=== PATIENT | male | born 1935 | race Caucasian/White ===

== ENCOUNTER 2017-03-14 13:41 | Inpatient (IN) | payer MEDICARE ==
[~2017-03-14] VITALS: Ht 175.3 cm; Wt 95.9 kg
[~2017-03-14 13:41] MED LIST: ACET325S8 PR; ATOR80TA PO; CARB25TA PO; COUM5TAB PO; HYDR-2768 PO; METO100T PO; OMEP20CA5 PO; PRIN5TAB PO; WARF2.5 PO
[2017-03-14 13:42] VITALS: BP 116/58; PULSE 94; RESP 16; TEMP 98.6; O2SAT 95
[2017-03-14 14:00] VITALS: BP 116/61; PULSE 81; RESP 20; O2SAT 97
[2017-03-14] MEDS ORDERED: METO100T PO (14:06)
[2017-03-14] MEDS ORDERED: COLA100C5 PO (14:06)
[2017-03-14] MEDS ORDERED: ENTA1TAB PO (14:06)
[2017-03-14] MEDS ORDERED: CARB25TA9 PO (14:06)
[2017-03-14] MEDS ORDERED: ATOR80TA45 PO (14:06)
[2017-03-14] MEDS ORDERED: WARF-23 PO (14:06)
[2017-03-14] MEDS ORDERED: HYDR25TA5 PO (14:06)
[2017-03-14] MEDS ORDERED: OMEP20TA93 PO (14:06)
[2017-03-14] MEDS ORDERED: LISI-519 PO (14:06)
[2017-03-14] MEDS ORDERED: VANCOMYCIN INJ 1,000 MG in SODIUM CHLOR 0.9% 250 ML INJ 250 ML IV ONE (14:45)
[2017-03-14] MEDS ORDERED: DILTIAZEM HCL 25 MG/5 ML VIAL IV PUSH ONE (14:45)
[2017-03-14] MEDS ORDERED: SODIUM CHLORIDE 0.9% FLUSH 5 ML FLUSH IV FLUSH PRN (14:45)
[2017-03-14] MEDS ORDERED: TETANUS/DIPHTHERIA TOXOID ADULT 0.5 ML VIAL IM ONE (14:45)
[2017-03-14] MEDS ORDERED: SODIUM CHLOR 0.9% 1000 ML INJ 1,000 ML IV SCH (14:45)
[2017-03-14] MEDS ORDERED: DILTIAZEM INJ 125 MG in SODIUM CHLORIDE 0.9% INJ 100 ML IV PRN (14:45)
--- NOTE | 2017-03-14 14:45 | PD ---
HPI Chief Complaint: Pain: Acute or Chronic Time Seen by Provider: 14:06 Travel History International Travel<30 days: No Contact w/Intl Traveler<30days: No Traveled to known affect area: No History of Present Illness HPI 81-year-old male complains of left foot pain and swelling and redness. Patient states that he tripped and hyperflexed the right big toe a few days ago. Patient states that he was bleeding at that time at the base of the big toe at that time. Patient states the bleeding stopped. Patient states that he has increasing redness swelling tenderness left foot since then. Patient denies any fever chills. Patient denies any other injury. Patient is not sure of TD booster status. Patient has history of atrial fibrillation. Patient is on metoprolol and Coumadin. 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 [facility] Past Medical History Blood Disorders: No Cancer: Yes (SKIN) Cardiovascular Problems: Yes (STENTS, AFIB) Diabetes: No Endocrine: No Gastrointestinal Disorders: Yes Glaucoma: No Genitourinary: No Hepatitis: No Hiatal Hernia: Yes (GERD) Hypertension: Yes Immune Disorder: No Musculoskeletal: No Neurologic: Yes (PARKINSON'S) Psychiatric: No Respiratory: Yes (ASTHMA YOUTH) Thyroid Disease: No Past Surgical History Eye Surgery: Yes (CATARACT LT EYE) Joint Replacement: No Pacemaker: No Other Surgery: Yes (cyst removed from tailbone, hernia repairs) Social History Alcohol Use: Yes (DAILY) Tobacco Use: Yes (QUIT LONG AGO) Substance Use: No Allergies-Medications (Allergen,Severity, Reaction): Coded Allergies: No Known Allergies (Verified , 03/14/17) Reported Meds & Prescriptions Reported Meds & Active Scripts Active Reported Colace (Docusate Sodium) 100 Mg Capsule PO BID Entacapone 200 Mg Tab 200 Mg PO QID administered concomitantly with each levodopa/carbidopa dose Carbidopa-Levodopa 25-100 Mg Tab 1 Tab PO Q8HR Warfarin 5 Mg Tab 5 Mg PO DAILY Lisinopril 5 Mg Tab 5 Mg PO DAILY Omeprazole 20 Mg Tab 20 Mg PO DAILY Atorvastatin (Atorvastatin Calcium) 80 Mg Tab 80 Mg PO HS Hydrochlorothiazide 25 Mg Tab 25 Mg PO EVERY OTHER DAY Metoprolol Tartrate 100 Mg Tab 100 Mg PO BID Review of Systems General / Constitutional: No: Fever Eyes: No: Visual changes HENT: No: Headaches Cardiovascular: No: Chest Pain or Discomfort Respiratory: No: Shortness of Breath Gastrointestinal: No: Abdominal Pain Genitourinary: No: Dysuria Musculoskeletal: Positive: Edema, Pain Skin: No Rash Neurologic: No: Weakness Psychiatric: No: Depression Endocrine: No: Polydipsia Hematologic/Lymphatic: No: Easy Bruising Physical Exam Narrative GENERAL: Well-nourished, well-developed patient. SKIN: Focused skin assessment warm/dry. HEAD: Normocephalic. EYES: No scleral icterus. No injection or drainage. NECK: Supple, trachea midline. No JVD or lymphadenopathy. CARDIOVASCULAR: Irregularly irregular rate and rhythm without murmurs, gallops, or rubs. RESPIRATORY: Breath sounds equal bilaterally. No accessory muscle use. GASTROINTESTINAL: Abdomen soft, non-tender, nondistended. MUSCULOSKELETAL: Patient has redness swelling tenderness left foot area extending from the toes to the distal left lower leg. No induration noted. Increasing redness and heat noted. BACK: Nontender without obvious deformity. No CVA tenderness. Neurologic exam normal. Data Data Last Documented VS Vital Signs Date Time Temp Pulse Resp B/P (MAP) Pulse Ox O2 Delivery O2 Flow Rate FiO2 03/14/17 14:00 81 20 116/61 (79) 97 Room Air 03/14/17 13:42 98.6 Orders Orders Ecg Monitoring (03/14/17 14:31) Blood Pressure (03/14/17 14:31) Iv Access Insert/Monitor (03/14/17 14:31) Oximetry (03/14/17 14:31) Vital Signs (03/14/17 14:31) Diltiazem Inj (Cardizem Inj) (03/14/17 14:45) Diltiazem Inj (Cardizem Inj) (03/14/17 14:45) Sodium Chloride 0.9% Flush (Ns Flush) (03/14/17 14:45) Sodium Chlor 0.9% 1000 Ml Inj (Ns 1000 M (03/14/17 14:45) Electrocardiogram (03/14/17 14:35) Complete Blood Count With Diff (03/14/17 14:35) Comprehensive Metabolic Panel (03/14/17 14:35) Prothrombin Time / Inr (Pt) (03/14/17 14:35) Act Partial Throm Time (Ptt) (03/14/17 14:35) Blood Culture (03/14/17 14:35) Urinalysis - C+S If Indicated (03/14/17 14:35) Thyroid Stimulating Hormone (03/14/17 14:35) Chest, Single Ap (03/14/17 14:35) Foot, Complete ([id number]) (03/14/17 14:38) Tetanus/Diphtheria Tox Adult (Tetanus/Di (03/14/17 14:45) Vancomycin Inj (Vancomycin Inj) (03/14/17 14:45) Admit Order (Ed Use Only) (03/14/17 16:35) Labs Laboratory Tests Test 03/14/17 14:40 White Blood Count 14.0 TH/MM3 Red Blood Count 3.73 MIL/MM3 Hemoglobin 12.9 GM/DL Hematocrit 38.1 % Mean Corpuscular Volume 102.2 FL Mean Corpuscular Hemoglobin 34.6 PG Mean Corpuscular Hemoglobin Concent 33.8 % Red Cell Distribution Width 13.8 % Platelet Count 216 TH/MM3 Mean Platelet Volume 9.3 FL Neutrophils (%) (Auto) 82.9 % Lymphocytes (%) (Auto) 4.2 % Monocytes (%) (Auto) 12.1 % Eosinophils (%) (Auto) 0.5 % Basophils (%) (Auto) 0.3 % Neutrophils # (Auto) 11.6 TH/MM3 Lymphocytes # (Auto) 0.6 TH/MM3 Monocytes # (Auto) 1.7 TH/MM3 Eosinophils # (Auto) 0.1 TH/MM3 Basophils # (Auto) 0.0 TH/MM3 CBC Comment DIFF FINAL Differential Comment Prothrombin Time 34.1 SEC Prothromb Time International Ratio 2.9 RATIO Activated Partial Thromboplast Time 43.7 SEC Blood Urea Nitrogen 16 MG/DL Creatinine 0.84 MG/DL Random Glucose 121 MG/DL Total Protein 6.8 GM/DL Albumin 2.9 GM/DL Calcium Level 8.2 MG/DL Alkaline Phosphatase 168 U/L Aspartate Amino Transf (AST/SGOT) 21 U/L Alanine Aminotransferase (ALT/SGPT) 9 U/L Total Bilirubin 1.1 MG/DL Sodium Level 127 MEQ/L Potassium Level 3.7 MEQ/L Chloride Level 94 MEQ/L Carbon Dioxide Level 26.1 MEQ/L Anion Gap 7 MEQ/L Estimat Glomerular Filtration Rate 88 ML/MIN Thyroid Stimulating Hormone 3rd Gen 1.140 uIU/ML MDM Medical Decision Making Medical Screen Exam Complete: Yes Emergency Medical Condition: Yes Interpretation(s) Last Impressions Foot X-Ray 03/14/17 1438 Signed Impressions: Service Date/Time: Tuesday, March 14, 2017 14:53 - CONCLUSION: Diffuse soft tissue swelling. Simone Junior MD Chest X-Ray 03/14/17 1435 Signed Impressions: Service Date/Time: Tuesday, March 14, 2017 14:48 - CONCLUSION: Mild right lower lung infiltrate. Simone Junior MD 1626 PM. CBC WBC 14.0. Hemoglobin 12.9 hematocrit 30.1. MCV 102.2. 82 neutrophil. Sodium 127. Alkaline phosphatase 168. INR 2.9. Differential Diagnosis Differential diagnosis including fracture, cellulitis, abscess, osteomyelitis, atrial fibrillation with RVR. Narrative Course 81-year-old male with redness swelling redness of the left foot left ankle and distal left low leg. Status post injury a few days ago. TD booster given. Vancomycin 1 g IV. Patient has history of atrial fibrillation and in RVR. Cardizem 10 mg IV. Cardizem drip started. Saline solution 100 cc an hour. Atrial fibrillation with RVR slowdown to the rate about 80s and 90s. Cardizem was not given. Diagnosis Primary Impression: Cellulitis of left foot Additional Impression: Atrial fibrillation Qualified Codes: I48.2 - Chronic atrial fibrillation Admitting Information Admitting Physician Requests: Admit Madhu Chandler MD Mar 14, 2017 14:45
[2017-03-14 14:56] LABS: AUTOMATED NEUTROPHIL # 11.6 TH/MM3 (1.8-7.7); BASOPHIL % 0.3 % (0.0-2.0); EOSINOPHIL # 0.1 TH/MM3 (0-0.4); EOSINOPHIL % 0.5 % (0.0-4.0); HEMATOCRIT 38.1 % (39.0-51.0); HEMOGLOBIN 12.9 GM/DL (13.0-17.0); LYMPH % 4.2 % (9.0-44.0); LYMPHOCYTE # 0.6 TH/MM3 (1.0-4.8); MEAN CELL VOLUME 102.2 FL (80.0-100.0); MEAN CORPUSCULAR HEMOGLOBIN 34.6 PG (27.0-34.0); MEAN CORPUSCULAR HGB CONC 33.8 % (32.0-36.0); MEAN PLATELET VOLUME 9.3 FL (7.0-11.0); MONO % 12.1 % (0.0-8.0); MONOCYTE # 1.7 TH/MM3 (0-0.9); NEUT % 82.9 % (16.0-70.0); PLATELET COUNT 216 TH/MM3 (150-450); RED BLOOD COUNT 3.73 MIL/MM3 (4.50-5.90); RED CELL DISTRIBUTION WIDTH 13.8 % (11.6-17.2)
--- NOTE | 2017-03-14 15:00 | RADRPT ---
EXAM DATE/TIME: 03/14/2017 14:48 [facility] COMPARISON: No previous studies available for comparison. INDICATIONS : Shortness of breath. MEDICAL HISTORY : A-fib. Parkinsons. SURGICAL HISTORY : Inguinal hernia repair. ENCOUNTER: Initial ACUITY: 1 week PAIN SCORE: 7/10 LOCATION: Bilateral chest FINDINGS: A single view of the chest demonstrates a mild patchy infiltrate in the right lung base. The left ashley g is clear. There are no pleural effusions.. The cardiomediastinal contours are unremarkable. [place] us structures are intact. CONCLUSION: Mild right lower lung infiltrate. Simone Junior MD on March 14, 2017 at 14:57 Board Certified Radiologist. This report was verified electronically.
--- NOTE | 2017-03-14 15:00 | RADRPT ---
EXAM DATE/TIME: 03/14/2017 14:48 [facility] COMPARISON: No previous studies available for comparison. INDICATIONS : Shortness of breath. MEDICAL HISTORY : A-fib. Parkinsons. SURGICAL HISTORY : Inguinal hernia repair. ENCOUNTER: Initial ACUITY: 1 week PAIN SCORE: 7/10 LOCATION: Bilateral chest FINDINGS: A single view of the chest demonstrates a mild patchy infiltrate in the right lung base. The left ashley g is clear. There are no pleural effusions.. The cardiomediastinal contours are unremarkable. [place] us structures are intact. CONCLUSION: Mild right lower lung infiltrate. Simone Junior MD on March 14, 2017 at 14:57 Board Certified Radiologist. This report was verified electronically.
--- NOTE | 2017-03-14 15:01 | RADRPT ---
EXAM DATE/TIME: 03/14/2017 14:53 [facility] COMPARISON: No previous studies available for comparison. INDICATIONS : Left foot pain and swelling. MEDICAL HISTORY : A-fib. Parkinsons. SURGICAL HISTORY : Inguinal hernia repair. ENCOUNTER: Initial ACUITY: 1 week PAIN SCORE: 8/10 LOCATION: Left foot FINDINGS: Three view examination of the left foot demonstrates diffuse soft tissue swelling around the foot. Th e bony structures are grossly intact. No acute fracture joint dislocation. There is some mild primary degenerative changes involving the foot. No foreign bodies are demonstrated. There is a heel spur.. CONCLUSION: Diffuse soft tissue swelling. Simone Junior MD on March 14, 2017 at 14:58 Board Certified Radiologist. This report was verified electronically.
[2017-03-14 15:08] LABS: INTERNATIONAL NORMALIZED RATIO 2.9 RATIO; PROTHROMBIN TIME - PATIENT 34.1 SEC (9.8-11.6)
[2017-03-14 15:17] LABS: ALBUMIN 2.9 GM/DL (3.4-5.0); AST (GOT) 21 U/L (15-37); BICARBONATE 26.1 MEQ/L (21.0-32.0); BLOOD UREA NITROGEN 16 MG/DL (7-18); CALCIUM 8.2 MG/DL (8.5-10.1); CHLORIDE 94 MEQ/L (98-107); CREATININE 0.84 MG/DL (0.60-1.30); GLOMERULAR FILTRATION RATE 88 ML/MIN (>89); GLUCOSE,RANDOM 121 MG/DL (74-106); SODIUM (NA) 127 MEQ/L (136-145)
[2017-03-14 15:18] LABS: ALT (GPT) 9 U/L (12-78)
[2017-03-14 15:28] LABS: ALKALINE PHOSPHATASE 168 U/L (45-117); TOTAL BILIRUBIN ADULT 1.1 MG/DL (0.2-1.0); TOTAL PROTEIN 6.8 GM/DL (6.4-8.2)
--- NOTE | 2017-03-14 16:43 | HHI.HP ---
HPI Service [facility] Hospitalists Primary Care Physician Hamlet Ríos MD Admission Diagnosis left foot cellulitis. Atrial fibrillation. Chief Complaint: Left foot swelling and erythema Travel History International Travel<30 Days: No Contact w/Intl Traveler <30 Da: No Traveled to Known Affected Are: No History of Present Illness Mr. Elizabeth is a pleasant 81 y/o WM with HTN, hyperlipidemia, Atrial fibrillation, Parkinson's Disease and daily alcohol use. Pt presented to the ED at [facility] [place] on 03/14/17 with complaints of left foot swelling and erythema. Pt reports that he injured his foot about 1 week ago when he tripped and hyperflexed the right big toe. He states that he was bleeding for a short time at the base of the big toe after the initial injury. Patient states that he has increasing redness, swelling, and tenderness of the left foot over the last 2 days and the redness has increased up the left raygoza today. He denies any fevers or chills. He is noted to have significant edema of bilateral LE and reports increased LE edema over the last 6 months. Denies any palpitations, dizziness, chest pain, SOB. He had an Xray of the foot which noted diffuse soft tissue swelling in the left foot. His labs at admission noted an elevated WBC count of 14.0. He was given Vancomycin IV in the ED. Pts HR was elevated in the ED and had been planned to be given IV Cardizem but he converted back to rate controlled A. fib. Pt denies any known hx of CHF. His last Echo that was in the outpt records was in 2002 and noted EF 45%. Review of Systems Constitutional: DENIES: Diaphoretic episodes, Fever, Chills, Dizziness, Change in appetite Eyes: DENIES: Vision loss Ears, nose, mouth, throat: DENIES: Hearing loss Respiratory: DENIES: Cough, Shortness of breath Cardiovascular: COMPLAINS OF: Lower Extremity Edema, DENIES: Chest pain, Palpitations, Dyspnea on Exertion, Orthopnea Gastrointestinal: DENIES: Abdominal pain, Constipation, Diarrhea, Nausea, Vomiting Genitourinary: DENIES: Hematuria, Dysuria Musculoskeletal: DENIES: Back pain, Neck pain Integumentary: COMPLAINS OF: Abnormal pigmentation, DENIES: Rash Neurologic: COMPLAINS OF: Tremor (chronic), DENIES: Headache, Localized weakness Psychiatric: DENIES: Confusion Past Family Social History Past Medical History A. fib HTN Hyperlipidemia Parkinson Disease CAD with hx of stent x 2 Skin cancer Alcohol abuse Past Surgical History Inguinal hernia repair x 2 Pilonidal cyst removal PTCA with stent placement to RCA and Left Circumflex in 2000 Reported Medications Colace (Docusate Sodium) 100 Mg Capsule PO BID Entacapone 200 Mg Tab 200 Mg PO QID administered concomitantly with each levodopa/carbidopa dose Carbidopa-Levodopa 25-100 Mg Tab 1 Tab PO Q8HR Warfarin 5 Mg Tab 5 Mg PO DAILY Lisinopril 5 Mg Tab 5 Mg PO DAILY Omeprazole 20 Mg Tab 20 Mg PO DAILY Atorvastatin (Atorvastatin Calcium) 80 Mg Tab 80 Mg PO HS Hydrochlorothiazide 25 Mg Tab 25 Mg PO EVERY OTHER DAY Metoprolol Tartrate 100 Mg Tab 100 Mg PO BID Allergies: Coded Allergies: No Known Allergies (Verified , 03/14/17) Family History Father with hx of leukemia Mother from CHF 3 brother from CAD/IA Social History (+)Alcohol use, 3-4 glasses of wine per day, used to drink more heavily than that. Has been drinking for many years Denies any tobacco use Denies any illicit drug use Pt is and lives locally Physical Exam Vital Signs Vital Signs Date Time Temp Pulse Resp B/P (MAP) Pulse Ox O2 Delivery O2 Flow Rate FiO2 03/14/17 14:00 81 20 116/61 (79) 97 Room Air 03/14/17 13:42 98.6 94 16 116/58 (77) 95 Physical Exam GENERAL: This is a well-nourished, well-developed patient, in no apparent distress. SKIN: Left foot erythema from the toes to the mid raygoza. HEENT: Atraumatic. Normocephalic. No temporal or scalp tenderness. No scleral icterus. Airway patent. NECK: Trachea midline, supple, nontender. CARDIO: Irregular. RESP: CTA bilaterally. No wheezes, rales, or rhonchi. ABD: +BS, soft, non-tender, nondistended. EXT: Bilateral LE pitting edema. NEURO: Awake and alert. Motor and sensory grossly within normal limits. Normal speech. Laboratory Laboratory Tests Test 03/14/17 14:40 White Blood Count 14.0 Red Blood Count 3.73 Hemoglobin 12.9 Hematocrit 38.1 Mean Corpuscular Volume 102.2 Mean Corpuscular Hemoglobin 34.6 Mean Corpuscular Hemoglobin Concent 33.8 Red Cell Distribution Width 13.8 Platelet Count 216 Mean Platelet Volume 9.3 Neutrophils (%) (Auto) 82.9 Lymphocytes (%) (Auto) 4.2 Monocytes (%) (Auto) 12.1 Eosinophils (%) (Auto) 0.5 Basophils (%) (Auto) 0.3 Neutrophils # (Auto) 11.6 Lymphocytes # (Auto) 0.6 Monocytes # (Auto) 1.7 Eosinophils # (Auto) 0.1 Basophils # (Auto) 0.0 CBC Comment DIFF FINAL Differential Comment Prothrombin Time 34.1 Prothromb Time International Ratio 2.9 Activated Partial Thromboplast Time 43.7 Blood Urea Nitrogen 16 Creatinine 0.84 Random Glucose 121 Total Protein 6.8 Albumin 2.9 Calcium Level 8.2 Alkaline Phosphatase 168 Aspartate Amino Transf (AST/SGOT) 21 Alanine Aminotransferase (ALT/SGPT) 9 Total Bilirubin 1.1 Sodium Level 127 Potassium Level 3.7 Chloride Level 94 Carbon Dioxide Level 26.1 Anion Gap 7 Estimat Glomerular Filtration Rate 88 Thyroid Stimulating Hormone 3rd Gen 1.140 Date/Time Source Procedure Growth Status 03/14/17 14:40 Blood Peripheral Aerobic Blood Culture Pending Received 03/14/17 14:40 Blood Peripheral Anaerobic Blood Culture Pending Received Result Diagram: 03/14/17 1440 03/14/17 1440 Imaging Last Impressions Foot X-Ray 03/14/17 1438 Signed Impressions: Service Date/Time: Tuesday, March 14, 2017 14:53 - CONCLUSION: Diffuse soft tissue swelling. Simone Junior MD Chest X-Ray 03/14/17 1435 Signed Impressions: Service Date/Time: Tuesday, March 14, 2017 14:48 - CONCLUSION: Mild right lower lung infiltrate. Simone Junior MD Septic Shock Reassessment Heart: Irregular Lungs: Clear Skin: Other Caprini VTE Risk Assessment Caprini VTE Risk Assessment: Mod/High Risk (score >= 2) Caprini Risk Assessment Model Point Value = 1 Point Value = 2 Point Value = 3 Point Value = 5 Age 41-60 Minor surgery BMI > 25 kg/m2 Swollen legs Varicose veins or History of unexplained or recurrent spontaneous Oral contraceptives or hormone replacement Sepsis (< 1 month) Serious lung disease, including pneumonia (< 1 month) Abnormal pulmonary function Acute myocardial infarction Congestive heart failure (< 1 month) History of inflammatory bowel disease Medical patient at bed rest Age 61-74 Arthroscopic surgery Major open surgery (> 45 min) Laparoscopic surgery (> 45 min) Malignancy Confined to bed (> 72 hours) Immobilizing plaster cast Central venous access Age >= 75 History of VTE Family history of VTE Factor V Leiden Prothrombin [id number] Lupus anticoagulant Anticardiolipin antibodies Elevated serum homocysteine Heparin-induced thrombocytopenia Other congenital or acquired thrombophilia Stroke (< 1 month) Elective arthroplasty Hip, pelvis, or leg fracture Acute spinal cord injury (< 1 month) Prophylaxis Regimen Total Risk Factor Score Risk Level Prophylaxis Regimen 0-1 Low Early ambulation 2 Moderate Order ONE of the following: *Sequential Compression Device (SCD) *Heparin 5000 units SQ BID 3-4 Higher Order ONE of the following medications: *Heparin 5000 units SQ TID *Enoxaparin/Lovenox 40 mg SQ daily (WT < 150 kg, CrCl > 30 mL/min) *Enoxaparin/Lovenox 30 mg SQ daily (WT < 150 kg, CrCl > 10-29 mL/min) *Enoxaparin/Lovenox 30 mg SQ BID (WT < 150 kg, CrCl > 30 mL/min) AND/OR *Sequential Compression Device (SCD) 5 or more Highest Order ONE of the following medications: *Heparin 5000 units SQ TID (Preferred with Epidurals) *Enoxaparin/Lovenox 40 mg SQ daily (WT < 150 kg, CrCl > 30 mL/min) *Enoxaparin/Lovenox 30 mg SQ daily (WT < 150 kg, CrCl > 10-29 mL/min) *Enoxaparin/Lovenox 30 mg SQ BID (WT < 150 kg, CrCl > 30 mL/min) AND *Sequential Compression Device (SCD) Assessment and Plan Problem List: (1) Cellulitis of left foot ICD Codes: L03.116 - Cellulitis of left lower limb Status: Acute Plan: - Pt is a 81 y/o male with atrial fibrillation on chronic anticoagulation with Coumadin, HTN, Hyperlipidemia, Parkinson's Disease who presents to the ED with complaints of left foot swelling, pain and erythema over the last few days. He had injured his foot around 1 week ago. - Xray in the ED with noted diffuse soft tissue swelling - Blood cultures drawn in the ED and are pending - Pt received IV Vancomycin in the ED and we will continue this and monitor his progress - Pt with noted significant LE edema which he reports has worsened over the last 6 months - Give Lasix 20mg IV x one dose and recheck labs in the morning - Check 2D echo, last echo in the records was from 2002 with EF 45% - Supportive care - DVT prophylaxis, pt is on Coumadin with therapeutic INR. (2) Leg edema ICD Codes: R60.0 - Localized edema Plan: - See above. (3) HTN (hypertension) ICD Codes: I10 - Essential (primary) hypertension Status: Chronic Plan: - Hold on continuing Lisinopril with giving IV Lasix - Cont. Metoprolol - Monitor (4) Atrial fibrillation ICD Codes: I48.91 - Unspecified atrial fibrillation Status: Chronic Plan: - Cont. BB and Coumadin - Recheck INR in AM - Telemetry (5) CAD (coronary artery disease) ICD Codes: I25.10 - Atherosclerotic heart disease of [place] coronary artery without angina pectoris (6) Parkinson disease ICD Codes: G20 - Parkinson's disease Status: Chronic Plan: - Home meds continued (7) Alcohol use ICD Codes: Z78.9 - Other specified health status Status: Chronic Plan: - Pt drinks alcohol daily but denies any hx of withdrawal but has tremors related to his Parkinson's - Ativan PRN - Alcohol withdrawal precautions Physician Certification 2 Midnight Certification Type: Admission for Inpatient Services Order for Inpatient Services The services are ordered in accordance with Medicare regulations or non- Medicare payer requirements, as applicable. In the case of services not specified as inpatient-only, they are appropriately provided as inpatient services in accordance with the 2-midnight benchmark. Estimated LOS (days): 3 3 days is the estimated time the patient will need to remain in the hospital, assuming treatment plan goals are met and no additional complications. Post-Hospital Plan: Not yet determined Problem Qualifiers (1) Atrial fibrillation: Qualified Codes: I48.2 - Chronic atrial fibrillation Livier Malloy Mar 14, 2017 16:43
[2017-03-14] MEDS ORDERED: COUM2.5T PO (16:48)
[2017-03-14] MEDS ORDERED: LORazepam 0.5 MG TAB PO PRN (17:30)
[2017-03-14 17:51] LABS: BILIRUBIN, URINE NEG (NEG); BLOOD, URINE NEG (NEG); GLUCOSE,URINE NEG (NEG); HYALINE CAST, URINE 6 /lpf (RARE); KETONE, URINE 10 mg/dL (NEG); MUCUS URINE FEW /lpf (OCC); NITRITE,URINE NEG (NEG); URINE LEUKOCYTE ESTERASE NEG (NEG)
[2017-03-14 17:56] LABS: URINE COLOR DARK-ORANGE (YELLW/STRAW)
[2017-03-14] MEDS ORDERED: FUROSEMIDE 20 MG/2 ML VIAL IV PUSH ONE (18:00)
[2017-03-14 18:26] VITALS: BP 115/58; PULSE 96; RESP 16; TEMP 98.6; O2SAT 96
[2017-03-14] MEDS: CARBIDOPA/LEVODOPA 25 MG/100 MG TAB PO SCH (19:16)
[2017-03-14] MEDS: WARFARIN SOD 2.5 MG TAB PO SCH (19:16)
[2017-03-14 20:00] VITALS: BP 98/57; PULSE 93; RESP 23; TEMP 98; O2SAT 100
[2017-03-14] MEDS ORDERED: METOPROLOL TARTRATE 100 MG TAB PO SCH (21:00)
[2017-03-14] MEDS: TEMAZEPAM 15 MG CAP PO PRN (22:09)
[2017-03-14] MEDS: ATORVASTATIN 80 MG TAB PO SCH (22:12)
[2017-03-15] VITALS (8 sets, daily range): BP systolic 88–105; BP diastolic 51–60; PULSE 84–105; RESP 16–23; TEMP 97.9–98.5; O2SAT 96–99
[2017-03-15] MEDS: CARBIDOPA/LEVODOPA 25 MG/100 MG TAB PO SCH ×4 (05:11→17:14)
[2017-03-15] MEDS: PANTOPRAZOLE SOD 20 MG DELAYED RELEASE TAB PO SCH (05:11)
[2017-03-15 07:16] LABS: AUTOMATED NEUTROPHIL # 10.7 TH/MM3 (1.8-7.7); BASOPHIL % 0.3 % (0.0-2.0); EOSINOPHIL # 0.1 TH/MM3 (0-0.4); HEMATOCRIT 35.1 % (39.0-51.0); INTERNATIONAL NORMALIZED RATIO 2.8 RATIO; LYMPH % 6.1 % (9.0-44.0); LYMPHOCYTE # 0.9 TH/MM3 (1.0-4.8); MEAN CORPUSCULAR HEMOGLOBIN 34.8 PG (27.0-34.0); MEAN CORPUSCULAR HGB CONC 34.1 % (32.0-36.0); MEAN PLATELET VOLUME 9.6 FL (7.0-11.0); MONO % 15.7 % (0.0-8.0); MONOCYTE # 2.2 TH/MM3 (0-0.9); NEUT % 76.9 % (16.0-70.0); PLATELET COUNT 163 TH/MM3 (150-450); PROTHROMBIN TIME - PATIENT 31.9 SEC (9.8-11.6); RED BLOOD COUNT 3.44 MIL/MM3 (4.50-5.90); RED CELL DISTRIBUTION WIDTH 13.7 % (11.6-17.2); WHITE BLOOD COUNT 13.9 TH/MM3 (4.0-11.0)
[2017-03-15 08:08] LABS: BANDS 2 % (0-6); LYMPHOCYTES 6 % (9-44); MONOCYTES 8 % (0-8); NEUTROPHIL # MANUAL DIFF 11.8 TH/MM3 (1.8-7.7); POLYS (SEG NEUTROPHILS) 83 % (16-70)
--- NOTE | 2017-03-15 09:22 | HHI.PR ---
Subjective Remarks feels better. Objective Vitals heart reg lung cta abd s/nt ext 2plus pitting edema legs left raygoza less red/left foot dorsally/great toe still red/tender. no drainage Vital Signs Date Time Temp Pulse Resp B/P (MAP) Pulse Ox O2 Delivery O2 Flow Rate FiO2 03/15/17 08:00 98.0 102 16 97/55 (69) 98 03/15/17 04:00 Room Air 03/15/17 04:00 98.5 91 18 96/56 (69) 98 03/15/17 02:45 98.3 105 19 96/51 (66) 99 03/15/17 00:00 Room Air 03/15/17 00:00 98.3 94 23 88/58 (68) 96 03/14/17 20:00 98.0 93 23 98/57 (71) 100 03/14/17 18:26 98.6 96 16 115/58 (77) 96 03/14/17 18:00 03/14/17 14:00 81 20 116/61 (79) 97 Room Air 03/14/17 13:42 98.6 94 16 116/58 (77) 95 Result Diagram: 03/15/17 0545 03/14/17 1440 Imaging Last Impressions Foot X-Ray 03/14/17 1438 Signed Impressions: Service Date/Time: Tuesday, March 14, 2017 14:53 - CONCLUSION: Diffuse soft tissue swelling. Simone Junior MD Chest X-Ray 03/14/17 1435 Signed Impressions: Service Date/Time: Tuesday, March 14, 2017 14:48 - CONCLUSION: Mild right lower lung infiltrate. Simone Junior MD A/P Problem List: (1) Cellulitis of left foot ICD Codes: L03.116 - Cellulitis of left lower limb Status: Acute Plan: - Pt is a 81 y/o male with atrial fibrillation on chronic anticoagulation with Coumadin, HTN, Hyperlipidemia, Parkinson's Disease who presents to the ED with complaints of left foot swelling, pain and erythema over the last few days. He had injured his foot around 1 week ago. - Xray in the ED with noted diffuse soft tissue swelling - Blood cultures drawn in the ED and are pending - Pt received IV Vancomycin in the ED and we will continue this and monitor his progress - Pt with noted significant LE edema which he reports has worsened over the last 6 months - Check 2D echo, last echo in the records was from 2002 with EF 45% cont iv vancomycin and monitor progress of cellulitis. seems a little better today his lower ext swelling is about the same. Na level is pending and his blood pressure is low... will await pending labwork for further diuretic decisions. lower his bb dose cont coumadin and monitor inr no sign of etoh w/d so far. f/u pending echo (2) Leg edema ICD Codes: R60.0 - Localized edema Plan: - See above. (3) HTN (hypertension) ICD Codes: I10 - Essential (primary) hypertension Status: Chronic Plan: - Hold on continuing Lisinopril with giving IV Lasix - Cont. Metoprolol - Monitor (4) Atrial fibrillation ICD Codes: I48.91 - Unspecified atrial fibrillation Status: Chronic Plan: - Cont. BB and Coumadin - Recheck INR in AM - Telemetry (5) CAD (coronary artery disease) ICD Codes: I25.10 - Atherosclerotic heart disease of [place] coronary artery without angina pectoris Status: Chronic (6) Parkinson disease ICD Codes: G20 - Parkinson's disease Status: Chronic Plan: - Home meds continued (7) Alcohol use ICD Codes: Z78.9 - Other specified health status Status: Chronic Plan: - Pt drinks alcohol daily but denies any hx of withdrawal but has tremors related to his Parkinson's - Ativan PRN - Alcohol withdrawal precautions Problem Qualifiers (1) Atrial fibrillation: Qualified Codes: I48.2 - Chronic atrial fibrillation Simone Gomez MD Mar 15, 2017 09:22
[2017-03-15] MEDS ORDERED: ACETAMINOPHEN/HYDROcodone 325 MG/5 MG TAB PO PRN (10:00)
[2017-03-15 12:37] LABS: CALCIUM 7.8 MG/DL (8.5-10.1); CREATININE 0.75 MG/DL (0.60-1.30); MAGNESIUM 1.8 MG/DL (1.5-2.5)
[2017-03-15] MEDS ORDERED: FUROSEMIDE 40 MG TAB PO ONE (13:00)
[2017-03-15] MEDS: METOPROLOL TARTRATE 25 MG TAB PO SCH ×2 (13:33→22:00)
[2017-03-15] MEDS: VANCOMYCIN INJ 1,000 MG in SODIUM CHLOR 0.9% 250 ML INJ 250 ML IV SCH (13:34)
[2017-03-15] MEDS: MORPHINE SULFATE 2 MG/ML INJ IV PUSH PRN ×2 (14:08→17:14)
[2017-03-15] MEDS: ACETAMINOPHEN/HYDROcodone 325 MG/7.5 MG TAB PO PRN ×2 (15:37→20:19)
[2017-03-15] MEDS: WARFARIN SOD 2.5 MG TAB PO SCH (15:40)
--- NOTE | 2017-03-15 15:59 | ECHRPT ---
Indication: CONCLUSIONS The left ventricular systolic function is normal with an estimated ejection fraction in the range of 60-65%. Normal left ventricular size. Wall thickness is normal. No regional wall motion abnormalities are present. The left atrial size is moderately dilated. The right atrial size is moderately dilated. Mild mitral valve regurgitation. Aortic valve sclerosis is present. Mild aortic valve regurgitation. There is mild tricuspid valve regurgitation. The estimated pulmonary arterial pressure is 62.4 mmHg. The inferior vena cava is dilated. There is estimated easrqolw-qj-xamnsh pulmonary hypertension present (range 60-70 mmHg). BP: 96 / 56 HR: 69 Rhythm: Atrial fibrillation MEASUREMENTS (Male / Female) Normal Values Technical Quality:Fair 2D ECHO LVOT Diameter 2.0 cm LV Ejection Fraction MOD 4C 61.3 % LV Cardiac Index MOD 4C 1211.7 cm/minm LV Ejection Fraction 4C AL 63.4 % LV Cardiac Index 4C AL 1299.5 cm/minm DOPPLER AV Peak Velocity 152.0 cm/s AV Peak Gradient 9.2 mmHg AI Peak Velocity 279.0 cm/s AI Peak Gradient 31.1 mmHg AI Pressure Half Time 493.0 ms LVOT Peak Velocity 130.0 cm/s LVOT Peak Gradient 6.8 mmHg AV Area Cont Eq pk 2.7 cm MV Area PHT 8.5 cm LV E' Lateral Velocity 17.4 cm/s LV E' Septal Velocity 10.7 cm/s TR Peak Velocity 362.0 cm/s TR Peak Gradient 52.4 mmHg Right Atrial Pressure 10.0 mmHg Pulmonary Artery Systolic Pressu 62.4 mmHg Right Ventricular Systolic Press 62.4 mmHg PV Peak Velocity 111.0 cm/s PV Peak Gradient 4.9 mmHg FINDINGS LEFT VENTRICLE The left ventricular systolic function is normal with an estimated ejection fraction in the range of 60-65%. Normal left ventricular size. Wall thickness is normal. No regional wall motion abnormalities are present. RIGHT VENTRICLE Normal right ventricular size and systolic function. LEFT ATRIUM The left atrial size is moderately dilated. RIGHT ATRIUM The right atrial size is moderately dilated. ATRIAL SEPTUM Normal atrial septal thickness without atrial level shunting by limited color doppler interrogation. AORTA The aortic root and proximal ascending aorta are normal in size on limited imaging. MITRAL VALVE Structurally normal mitral valve. Mild mitral valve regurgitation. AORTIC VALVE Trileaflet aortic valve. Aortic valve sclerosis is present. Mild aortic valve regurgitation. TRICUSPID VALVE There is estimated rrfexeau-qd-tnvxgs pulmonary hypertension present (range 60-70 mmHg). Structurally normal tricuspid valve. There is mild tricuspid valve regurgitation. The estimated pulmonary arterial pressure is 62.4 mmHg. PULMONARY VALVE No pulmonary valve regurgitation or stenosis. VESSELS The inferior vena cava is dilated. PERICARDIUM No pericardial effusion. Chuck Kaufman MD (Electronically Signed) Final Date:15 March 2017 15:58
[2017-03-15] MEDS: ENTACAPONE 200 MG PO SCH ×2 (17:14→20:18)
[2017-03-15] MEDS: ATORVASTATIN 80 MG TAB PO SCH (20:18)
[2017-03-15] MEDS ORDERED: SODIUM CHLORID 0.9% 500 ML INJ 500 ML IV ONE (22:30)
[2017-03-15] MEDS: TEMAZEPAM 15 MG CAP PO PRN (22:39)
[2017-03-15] MEDS ORDERED: SODIUM CHLOR 0.9% 1000 ML INJ 1,000 ML IV ONE (23:30)
[2017-03-16] VITALS (11 sets, daily range): BP systolic 86–107; BP diastolic 53–62; PULSE 79–157; RESP 16–20; TEMP 98–99.2; O2SAT 93–97
[2017-03-16] MEDS: MORPHINE SULFATE 2 MG/ML INJ IV PUSH PRN (03:54)
[2017-03-16] MEDS: METOPROLOL TARTRATE 25 MG TAB PO SCH (05:17)
[2017-03-16] MEDS: CARBIDOPA/LEVODOPA 25 MG/100 MG TAB PO SCH ×4 (05:17→18:13)
[2017-03-16] MEDS: PANTOPRAZOLE SOD 20 MG DELAYED RELEASE TAB PO SCH (05:17)
[2017-03-16] MEDS: DIGOXIN 0.5 MG/2 ML VIAL IV PUSH SCH ×2 (08:18→09:11)
[2017-03-16 09:15] LABS: INTERNATIONAL NORMALIZED RATIO 2.9 RATIO
[2017-03-16 09:27] LABS: BICARBONATE 26.7 MEQ/L (21.0-32.0); CALCIUM 7.9 MG/DL (8.5-10.1); CREATININE 0.8 MG/DL (0.60-1.30); MAGNESIUM 1.7 MG/DL (1.5-2.5)
[2017-03-16] MEDS ORDERED: METOPROLOL TARTRATE 50 MG TAB PO STA (09:30)
--- NOTE | 2017-03-16 09:35 | HHI.PR ---
Subjective Remarks doing ok. afib/rvr this AM denies cp/sob. Objective Vitals heart irreg lung cta abd s/nt ext lower ext edema better. left great toe/dorsal foot/medial lower leg erythematous. Vital Signs Date Time Temp Pulse Resp B/P (MAP) Pulse Ox O2 Delivery O2 Flow Rate FiO2 03/16/17 08:31 120 92/60 (71) 03/16/17 08:25 Room Air 03/16/17 07:19 90/60 (70) 03/16/17 05:00 98.0 92 18 88/61 (70) 97 86/62 (70) 03/16/17 05:00 92 18 88/61 (70) 97 86/62 (70) 03/16/17 04:00 Room Air 03/16/17 00:00 98.6 83 18 91/57 (68) 97 03/15/17 20:00 91 03/15/17 20:00 98.2 96 20 96/58 (71) 97 03/15/17 20:00 Room Air 03/15/17 16:00 98.1 84 18 104/60 (75) 96 03/15/17 12:00 97.9 95 18 105/58 (74) 96 03/15/17 10:55 Room Air Result Diagram: 03/15/17 0545 03/16/17 0815 Imaging Last Impressions Foot X-Ray 03/14/17 1438 Signed Impressions: Service Date/Time: Tuesday, March 14, 2017 14:53 - CONCLUSION: Diffuse soft tissue swelling. Simone Junior MD Chest X-Ray 03/14/17 1435 Signed Impressions: Service Date/Time: Tuesday, March 14, 2017 14:48 - CONCLUSION: Mild right lower lung infiltrate. Simone Junior MD A/P Problem List: (1) Cellulitis of left foot ICD Codes: L03.116 - Cellulitis of left lower limb Status: Acute Plan: - Pt is a 81 y/o male with atrial fibrillation on chronic anticoagulation with Coumadin, HTN, Hyperlipidemia, Parkinson's Disease who presents to the ED with complaints of left foot swelling, pain and erythema over the last few days. He had injured his foot around 1 week ago. - Xray in the ED with noted diffuse soft tissue swelling - Blood cultures drawn in the ED and are pending - Pt received IV Vancomycin in the ED and we will continue this and monitor his progress - Pt with noted significant LE edema which he reports has worsened over the last 6 months - Check 2D echo, last echo in the records was from 2002 with EF 45% cont iv vancomycin and monitor progress of cellulitis. seems a little better today Lower ext edema better. hyponatremia improved. no evidence of chf on echo. today problems with afib/rvr his bb was lowered/held due to low bp..pt says he takes 100mg bid at home even when sbp 80s/90s digoxin given with minimal effect. add back metoprolol.......before I left the floor his afib rate is 60-80s.......down from 170s cont coumadin and monitor inr no sign of etoh w/d so far. (2) Leg edema ICD Codes: R60.0 - Localized edema Plan: - See above. (3) HTN (hypertension) ICD Codes: I10 - Essential (primary) hypertension Status: Chronic Plan: - Hold on continuing Lisinopril with giving IV Lasix - Cont. Metoprolol - Monitor (4) Atrial fibrillation ICD Codes: I48.91 - Unspecified atrial fibrillation Status: Chronic Plan: as above (5) CAD (coronary artery disease) ICD Codes: I25.10 - Atherosclerotic heart disease of [place] coronary artery without angina pectoris Status: Chronic (6) Parkinson disease ICD Codes: G20 - Parkinson's disease Status: Chronic Plan: - Home meds continued (7) Alcohol use ICD Codes: Z78.9 - Other specified health status Status: Chronic Plan: - Pt drinks alcohol daily but denies any hx of withdrawal but has tremors related to his Parkinson's - Ativan PRN - Alcohol withdrawal precautions Problem Qualifiers (1) Atrial fibrillation: Qualified Codes: I48.2 - Chronic atrial fibrillation Simone Gomez MD Mar 16, 2017 09:35
[2017-03-16] MEDS: ENTACAPONE 200 MG PO SCH ×3 (12:10→18:13)
[2017-03-16] MEDS: ACETAMINOPHEN/HYDROcodone 325 MG/10 MG TAB PO PRN ×2 (12:24→20:03)
--- NOTE | 2017-03-16 13:48 | EKG ---
Date Performed: 03/14/2017 Time Performed: 13:07:52 PTAGE: 81 years EKG: ATRIAL FIBRILLATION LOW QRS VOLTAGE IN EXTEMITY LEADS INFERIOR MYOCARDIAL INFARCTION, PROBA TYRELL OLD ABNORMAL ECG Compared to prior tracing no significant change PREVIOUS TRACING : 01/28/2003 05.51 DOCTOR: Zheng Chavez Interpretating Date/Time 03/19/2017 07:40:18
[2017-03-16] MEDS: METOPROLOL TARTRATE 50 MG TAB PO SCH ×2 (15:04→22:23)
[2017-03-16] MEDS: VANCOMYCIN INJ 1,000 MG in SODIUM CHLOR 0.9% 250 ML INJ 250 ML IV SCH (15:27)
[2017-03-16] MEDS ORDERED: Vancomycin Consult Pharmacy 1 EA OTHER SCH (15:30)
[2017-03-16] MEDS: WARFARIN SOD 2.5 MG TAB PO SCH (17:12)
[2017-03-16] MEDS: ATORVASTATIN 80 MG TAB PO SCH (20:03)
[2017-03-16] MEDS: TEMAZEPAM 15 MG CAP PO PRN (22:24)
[2017-03-17] VITALS (8 sets, daily range): BP systolic 90–109; BP diastolic 52–69; PULSE 74–107; RESP 18–20; TEMP 98.5–99.6; O2SAT 93–98
[2017-03-17] MEDS: VANCOMYCIN INJ 1,000 MG in SODIUM CHLOR 0.9% 250 ML INJ 250 ML IV SCH ×2 (03:19→15:12)
[2017-03-17] MEDS: ACETAMINOPHEN/HYDROcodone 325 MG/10 MG TAB PO PRN ×4 (03:26→22:37)
[2017-03-17] MEDS: PANTOPRAZOLE SOD 20 MG DELAYED RELEASE TAB PO SCH (05:37)
[2017-03-17] MEDS: CARBIDOPA/LEVODOPA 25 MG/100 MG TAB PO SCH ×4 (05:37→17:42)
[2017-03-17] MEDS: METOPROLOL TARTRATE 50 MG TAB PO SCH ×2 (05:37→15:11)
[2017-03-17] MEDS: ENTACAPONE 200 MG PO SCH ×4 (05:39→17:46)
--- NOTE | 2017-03-17 13:53 | HHI.PR ---
Subjective Remarks No new complaints. Pt denies chest pain or palpitations. Objective Vitals Vital Signs Date Time Temp Pulse Resp B/P (MAP) Pulse Ox O2 Delivery O2 Flow Rate FiO2 03/17/17 08:10 Room Air 03/17/17 08:10 90 03/17/17 04:00 99.6 84 20 96/57 (70) 93 03/17/17 00:00 99.2 74 18 92/52 (65) 95 03/16/17 21:00 Room Air 03/16/17 21:00 79 03/16/17 20:00 99.2 95 16 97/61 (73) 96 03/16/17 16:00 99.0 87 20 99/58 (72) 96 03/16/17 15:00 89 90/53 (65) Result Diagram: 03/15/17 0545 03/16/17 0815 Imaging Last Impressions Foot X-Ray 03/14/17 1438 Signed Impressions: Service Date/Time: Tuesday, March 14, 2017 14:53 - CONCLUSION: Diffuse soft tissue swelling. Simone Junior MD Chest X-Ray 03/14/17 1435 Signed Impressions: Service Date/Time: Tuesday, March 14, 2017 14:48 - CONCLUSION: Mild right lower lung infiltrate. Simone Junior MD Objective Remarks GENERAL: This is a well-nourished, well-developed patient, in no apparent distress. CARDIOVASCULAR: irregular RESPIRATORY: Clear to auscultation. Breath sounds equal bilaterally. No wheezes , rales, or rhonchi. GASTROINTESTINAL: Abdomen soft, non-tender, nondistended. Normal active bowel sounds MUSCULOSKELETAL: Extremities without clubbing, cyanosis, or edema. NEURO: Alert & Oriented x4 to person, place, time, situation. Moves all ext x4 A/P Problem List: (1) Cellulitis of left foot ICD Codes: L03.116 - Cellulitis of left lower limb Status: Acute Plan: - Pt is a 81 y/o male with atrial fibrillation on chronic anticoagulation with Coumadin, HTN, Hyperlipidemia, Parkinson's Disease who presents to the ED with complaints of left foot swelling, pain and erythema over the last few days. He had injured his foot around 1 week ago. - Xray in the ED with noted diffuse soft tissue swelling - Blood Cx (03/14/17) --> NGTD - Vancomycin (03/14 - present) - Pt with noted significant LE edema which he reports has worsened over the last 6 months - Echocardiogram (03/14/17) --> EF 60-65%, b/l atrial enlargement - supportive care - DVT prophylaxis with Coumadin - PT has recommended SNF at the end of hospitalization. Pt would strongly prefer to discharge to home. - anticipate d/c in 2-3 days (2) Leg edema ICD Codes: R60.0 - Localized edema Plan: - See above. (3) Atrial fibrillation ICD Codes: I48.91 - Unspecified atrial fibrillation Status: Chronic Plan: - at home uses metoprolol 100mg BID - but pt with hypotension - currently receiving metoprolol 50mg TID - pt sporadically spiking into the 140s - minimal improvemfent with digoxin - countine coumadin - request Cardiology Consultation (4) HTN (hypertension) ICD Codes: I10 - Essential (primary) hypertension Status: Chronic Plan: - Hold on continuing Lisinopril with giving IV Lasix - Cont. Metoprolol - Monitor (5) CAD (coronary artery disease) ICD Codes: I25.10 - Atherosclerotic heart disease of [place] coronary artery without angina pectoris Status: Chronic (6) Parkinson disease ICD Codes: G20 - Parkinson's disease Status: Chronic Plan: - Home meds continued (7) Alcohol use ICD Codes: Z78.9 - Other specified health status Status: Chronic Plan: - Pt drinks alcohol daily but denies any hx of withdrawal but has tremors related to his Parkinson's - Ativan PRN - Alcohol withdrawal precautions Problem Qualifiers (1) Atrial fibrillation: Qualified Codes: I48.2 - Chronic atrial fibrillation Francis Argueta DO Mar 17, 2017 13:53
[2017-03-17] MEDS ORDERED: PHARMACY ORDERED LAB ONE (14:45)
[2017-03-17] MEDS ORDERED: WARFARIN SOD 5 MG TAB PO SCH (16:00)
--- NOTE | 2017-03-17 19:58 | MB ---
cc: CARLOS NOLAND MD DATE OF CONSULTATION 03/17/2017 HISTORY A 81-year-old gentleman who is admitted to the hospital with cellulitis of his left foot. Apparently bent his left toe backward and began having significant swelling and erythema and pain in that area. He came to the emergency room where he was found to have a cellulitis and antibiotics have subsequently been started. He has a long history of chronic ankle edema which is felt to be secondary to venous insufficiency. He also has a history of chronic atrial fibrillation with rate control with metoprolol 100 mg twice daily. He was begun on 50 mg three times daily in the hospital and rate has been fairly well-controlled but that has had some breakthroughs with a rapid ventricular response. He has no symptoms of chest pain or palpitations. No shortness of breath, lightheadedness or dizziness has been present. Echocardiography in the past has demonstrated an EF of 45% and here the hospital his EF was estimated at 60-65%. His blood pressure has been well-controlled at 103/70. ALLERGIES None. PHYSICAL EXAMINATION GENERAL: On physical exam he is awake and alert. VITAL SIGNS: His blood pressure is 103/70, pulse is approximately 80-90 and irregular. NECK: There is no neck vein distension. LUNGS: Clear. CARDIOVASCULAR: Exam reveals irregularly irregular rhythm. No significant murmur. No gallop is noted. EXTREMITIES: +2-3 pedal edema is noted bilaterally. His left toe and foot are significantly more swollen with erythema and tenderness to palpation. ASSESSMENT The patient has a cellulitis which is being treated with antibiotics appropriately. I will restart his outpatient dose of metoprolol at 100 mg twice a day to better control his heart rate and continue his warfarin therapy for thromboembolic protection. Carlos Noland MD DLRachel/KK /3:39 PM /7:46 PM
[2017-03-17] MEDS: METOPROLOL TARTRATE 100 MG TAB PO SCH (22:37)
[2017-03-17] MEDS: ATORVASTATIN 80 MG TAB PO SCH (22:38)
[2017-03-18] VITALS (7 sets, daily range): BP systolic 91–115; BP diastolic 54–63; PULSE 77–114; RESP 17–20; TEMP 97.8–98.8; O2SAT 94–96
[2017-03-18] MEDS: TEMAZEPAM 15 MG CAP PO PRN ×2 (00:30→22:09)
[2017-03-18] MEDS: VANCOMYCIN INJ 1,000 MG in SODIUM CHLOR 0.9% 250 ML INJ 250 ML IV SCH ×2 (03:54→15:36)
[2017-03-18] MEDS: PANTOPRAZOLE SOD 20 MG DELAYED RELEASE TAB PO SCH (05:37)
[2017-03-18] MEDS: ENTACAPONE 200 MG PO SCH ×4 (05:37→18:09)
[2017-03-18] MEDS: CARBIDOPA/LEVODOPA 25 MG/100 MG TAB PO SCH ×4 (05:37→18:08)
[2017-03-18] MEDS: ACETAMINOPHEN/HYDROcodone 325 MG/10 MG TAB PO PRN ×2 (05:38→18:09)
--- NOTE | 2017-03-18 07:48 | PD.CARD.PN ---
Subjective Subjective Remarks Tolerating meds well. HR and BP well controlled Objective Medications Current Medications Medications (Trade) Dose Ordered Sig/Vita Route Start Time Stop Time Status Last Admin (NS Flush) 2 ml UNSCH PRN IV FLUSH 03/14/17 14:45 (Lipitor) 80 mg HS PO 03/14/17 21:00 03/17/17 22:38 (Sinemet 25-100 Mg) 1 tab 0600,1000,1400,1800 PO 03/14/17 18:00 03/18/17 05:37 (Coumadin) 5 mg Mo@1600 PO 03/17/17 16:00 03/17/17 15:11 (Coumadin) 2.5 mg SuTuWeThFrSa@1600 PO 03/14/17 18:00 03/16/17 17:12 (Protonix) 20 mg DAILY@0600 PO 03/15/17 06:00 03/18/17 05:37 (Ativan) 0.5 mg Q6H PRN PO 03/14/17 17:30 (Restoril) 15 mg HS PRN PO 03/14/17 17:30 03/18/17 00:30 ([place] 10-325 Mg) 1 tab Q4H PRN PO 03/16/17 07:45 03/18/17 05:38 Pharmacy Profile Note 0 ml @ 0 mls/hr UNSCH OTHER 03/16/17 15:30 Vancomycin HCl 1000 mg/Sodium Chloride 250 ml @ 250 mls/hr Q12H IV 03/17/17 03:00 03/18/17 03:54 Patient Own Medication POM:(Entacapone 200 MG) TABLET PO 0600,1000,1400,1800 0600,1000,1400,1800 PO 03/16/17 18:00 03/18/17 05:37 (Lopressor) 100 mg Q12HR PO 03/17/17 21:00 03/17/17 22:37 Vital Signs / I&O Vital Signs Date Time Temp Pulse Resp B/P (MAP) Pulse Ox O2 Delivery O2 Flow Rate FiO2 03/18/17 00:00 98.1 77 17 91/54 (66) 96 03/17/17 22:26 Room Air 03/17/17 22:26 98.5 79 18 109/69 (82) 98 03/17/17 20:20 86 03/17/17 16:01 99.3 98 18 104/67 (79) 94 03/17/17 12:00 99.1 99 18 103/66 (78) 96 03/17/17 08:10 Room Air 03/17/17 08:10 90 03/17/17 08:00 98.6 107 18 90/54 (66) 95 Manual Cuff/Auscultation I/O 03/17/17 03/17/17 03/17/17 03/18/17 03/18/17 03/18/17 07:00 15:00 23:00 07:00 15:00 23:00 Intake Total 370 ml 670 ml Output Total 300 ml 550 ml Balance 70 ml 120 ml Intake Oral 120 ml 420 ml IV Total 250 ml 250 ml Output Urine Total 300 ml 550 ml # Bowel Movements 0 0 Physical Exam Lungs clear HR approximately 70 Laboratory Laboratory Tests Test 03/17/17 14:45 Random Vancomycin Level 11.1 COMMENT Assessment and Plan Assessment and Plan Stable CV. Will see Carlos Ramon MD Mar 18, 2017 07:48
[2017-03-18] MEDS: METOPROLOL TARTRATE 100 MG TAB PO SCH ×2 (08:26→22:08)
[2017-03-18 08:27] LABS: INTERNATIONAL NORMALIZED RATIO 4.4 RATIO
--- NOTE | 2017-03-18 14:11 | HHI.PR ---
Subjective Remarks HR better controlled today BP is stable. Still with erythema centered more around the base of the left great toe but pt reports that the pain is improving. Objective Vitals Vital Signs Date Time Temp Pulse Resp B/P (MAP) Pulse Ox O2 Delivery O2 Flow Rate FiO2 03/18/17 12:00 98.1 88 20 108/62 (77) 96 03/18/17 08:10 Room Air 03/18/17 08:10 99 03/18/17 08:00 98.1 114 17 101/63 (76) 94 03/18/17 04:00 97.8 104 19 101/55 (70) 94 03/18/17 00:00 98.1 77 17 91/54 (66) 96 03/18/17 00:00 Room Air 03/17/17 22:26 Room Air 03/17/17 22:26 98.5 79 18 109/69 (82) 98 03/17/17 20:20 86 03/17/17 16:01 99.3 98 18 104/67 (79) 94 Result Diagram: 03/15/17 0545 03/16/17 0815 Other Results Laboratory Tests Test 03/17/17 14:45 03/18/17 07:00 Random Vancomycin Level 11.1 COMMENT Prothrombin Time 52.0 SEC Prothromb Time International Ratio 4.4 RATIO Imaging Last Impressions Foot X-Ray 03/14/17 1438 Signed Impressions: Service Date/Time: Tuesday, March 14, 2017 14:53 - CONCLUSION: Diffuse soft tissue swelling. Simone Junior MD Chest X-Ray 03/14/17 1435 Signed Impressions: Service Date/Time: Tuesday, March 14, 2017 14:48 - CONCLUSION: Mild right lower lung infiltrate. Simone Junior MD Objective Remarks General: NAD, AAOx3 Chest: CTA Cardiac: Irregular Abd: +Bs, soft ND/NT Ext: lower ext edema better, left great toe/dorsal foot erythematous. A/P Problem List: (1) Cellulitis of left foot ICD Codes: L03.116 - Cellulitis of left lower limb Status: Acute Plan: - Pt is a 81 y/o male with atrial fibrillation on chronic anticoagulation with Coumadin, HTN, Hyperlipidemia, Parkinson's Disease who presents to the ED with complaints of left foot swelling, pain and erythema over the last few days. He had injured his foot around 1 week ago. - Xray in the ED with noted diffuse soft tissue swelling - Blood Cx (03/14/17) --> NGTD - Vancomycin (03/14 - present), pharmacy to monitor vanc levels - Pt with noted significant LE edema which he reports has worsened over the last 6 months - Echocardiogram (03/14/17) --> EF 60-65%, b/l atrial enlargement - If not further improvement in the erythema of the left great toe tomorrow, then repeat imaging studies. - supportive care - DVT prophylaxis with Coumadin (to be held today for supra-therapeutic INR) - PT has recommended SNF at the end of hospitalization. Pt would strongly prefer to discharge to home. - anticipate d/c in 2-3 days (2) Leg edema ICD Codes: R60.0 - Localized edema Plan: - See above. (3) Atrial fibrillation ICD Codes: I48.91 - Unspecified atrial fibrillation Status: Chronic Plan: - Metoprolol 100mg BID resumed and HR better controlled - BP still low but stable. - Digoxin stopped on 03/16 - Coumadin to be held for supra-therapeutic INR 4.4 on 03/18 - Appreciate Cardiology Consultation (4) HTN (hypertension) ICD Codes: I10 - Essential (primary) hypertension Status: Chronic Plan: - Hold on continuing Lisinopril - Cont. Metoprolol - Monitor (5) CAD (coronary artery disease) ICD Codes: I25.10 - Atherosclerotic heart disease of [place] coronary artery without angina pectoris Status: Chronic (6) Parkinson disease ICD Codes: G20 - Parkinson's disease Status: Chronic Plan: - Home meds continued (7) Alcohol use ICD Codes: Z78.9 - Other specified health status Status: Chronic Plan: - Pt drinks alcohol daily but denies any hx of withdrawal but has tremors related to his Parkinson's - Ativan PRN - Alcohol withdrawal precautions Assessment and Plan Patient examined. Assessment and plan formulated with Livier Malloy PA-C. I agree with the above. Problem Qualifiers (1) Atrial fibrillation: Qualified Codes: I48.2 - Chronic atrial fibrillation (2) CAD (coronary artery disease): Qualified Codes: I25.10 - Atherosclerotic heart disease of [place] coronary artery without angina pectoris Livier Malloy Mar 18, 2017 14:11 Francis Argueta DO Mar 23, 2017 18:37
[2017-03-18] MEDS: ATORVASTATIN 80 MG TAB PO SCH (22:09)
[2017-03-19] VITALS (7 sets, daily range): BP systolic 98–133; BP diastolic 5–72; PULSE 78–130; RESP 18; TEMP 98.1–98.8; O2SAT 92–97
[2017-03-19] MEDS: VANCOMYCIN INJ 1,000 MG in SODIUM CHLOR 0.9% 250 ML INJ 250 ML IV SCH ×2 (03:59→14:00)
[2017-03-19] MEDS: CARBIDOPA/LEVODOPA 25 MG/100 MG TAB PO SCH ×4 (05:54→17:04)
[2017-03-19] MEDS: ENTACAPONE 200 MG PO SCH ×4 (05:56→17:05)
[2017-03-19] MEDS: PANTOPRAZOLE SOD 20 MG DELAYED RELEASE TAB PO SCH (05:56)
[2017-03-19 08:23] LABS: PROTHROMBIN TIME - PATIENT 47.5 SEC (9.8-11.6)
[2017-03-19 08:30] LABS: AUTOMATED NEUTROPHIL # 7.8 TH/MM3 (1.8-7.7); BASOPHIL # 0.1 TH/MM3 (0-0.2); BASOPHIL % 0.6 % (0.0-2.0); EOSINOPHIL # 0.4 TH/MM3 (0-0.4); EOSINOPHIL % 3.7 % (0.0-4.0); HEMATOCRIT 34.3 % (39.0-51.0); LYMPHOCYTE # 0.6 TH/MM3 (1.0-4.8); MEAN CELL VOLUME 102.1 FL (80.0-100.0); MEAN CORPUSCULAR HEMOGLOBIN 35.9 PG (27.0-34.0); MEAN CORPUSCULAR HGB CONC 35.2 % (32.0-36.0); MEAN PLATELET VOLUME 8.8 FL (7.0-11.0); MONO % 15.9 % (0.0-8.0); MONOCYTE # 1.7 TH/MM3 (0-0.9); NEUT % 73.8 % (16.0-70.0); PLATELET COUNT 208 TH/MM3 (150-450); RED BLOOD COUNT 3.36 MIL/MM3 (4.50-5.90); RED CELL DISTRIBUTION WIDTH 13.2 % (11.6-17.2); WHITE BLOOD COUNT 10.5 TH/MM3 (4.0-11.0)
[2017-03-19 08:47] LABS: BICARBONATE 28.1 MEQ/L (21.0-32.0); CALCIUM 8.1 MG/DL (8.5-10.1); CREATININE 0.63 MG/DL (0.60-1.30)
[2017-03-19] MEDS: METOPROLOL TARTRATE 100 MG TAB PO SCH ×2 (08:58→22:03)
[2017-03-19] MEDS: ACETAMINOPHEN/HYDROcodone 325 MG/10 MG TAB PO PRN ×3 (13:33→22:01)
[2017-03-19] MEDS ORDERED: BISACODYL 10 MG SUPP RECTAL PRN (17:30)
[2017-03-19] MEDS ORDERED: MAGNESIUM HYDROXIDE SUSP 30 ML CUP PO PRN (17:30)
--- NOTE | 2017-03-19 17:34 | HHI.PR ---
Subjective Remarks Patient reports feeling better today, feels as though the edema in LLE was better eariler today before walking edema increased after ambulation today Objective Vitals Vital Signs Date Time Temp Pulse Resp B/P (MAP) Pulse Ox O2 Delivery O2 Flow Rate FiO2 03/19/17 16:00 98.3 78 18 98/66 (77) 94 03/19/17 12:14 Room Air 03/19/17 12:00 98.7 108 18 126/72 (90) 96 03/19/17 08:00 98.8 130 18 108/67 (81) 95 03/19/17 04:00 98.1 93 18 133/58 (83) 95 03/19/17 00:00 98.7 80 18 105/5 (38) 97 03/18/17 20:00 Room Air 03/18/17 20:00 98.6 101 20 115/62 (79) 96 03/18/17 20:00 103 03/19/17 03/19/17 03/20/17 15:00 23:00 07:00 Intake Total 265 ml Balance 265 ml IV Total 265 ml Result Diagram: 03/19/17 0703/19/17 07 Other Results Laboratory Tests Test 03/17/17 14:45 03/18/17 07:00 03/19/17 07:00 Random Vancomycin Level 11.1 COMMENT Prothrombin Time 52.0 SEC 47.5 SEC Prothromb Time International Ratio 4.4 RATIO 4.0 RATIO White Blood Count 10.5 TH/MM3 Red Blood Count 3.36 MIL/MM3 Hemoglobin 12.0 GM/DL Hematocrit 34.3 % Mean Corpuscular Volume 102.1 FL Mean Corpuscular Hemoglobin 35.9 PG Mean Corpuscular Hemoglobin Concent 35.2 % Red Cell Distribution Width 13.2 % Platelet Count 208 TH/MM3 Mean Platelet Volume 8.8 FL Neutrophils (%) (Auto) 73.8 % Lymphocytes (%) (Auto) 6.0 % Monocytes (%) (Auto) 15.9 % Eosinophils (%) (Auto) 3.7 % Basophils (%) (Auto) 0.6 % Neutrophils # (Auto) 7.8 TH/MM3 Lymphocytes # (Auto) 0.6 TH/MM3 Monocytes # (Auto) 1.7 TH/MM3 Eosinophils # (Auto) 0.4 TH/MM3 Basophils # (Auto) 0.1 TH/MM3 CBC Comment DIFF FINAL Differential Comment Blood Urea Nitrogen 12 MG/DL Creatinine 0.63 MG/DL Random Glucose 82 MG/DL Calcium Level 8.1 MG/DL Sodium Level 132 MEQ/L Potassium Level 4.0 MEQ/L Chloride Level 98 MEQ/L Carbon Dioxide Level 28.1 MEQ/L Anion Gap 6 MEQ/L Estimat Glomerular Filtration Rate 123 ML/MIN Imaging Last Impressions Foot X-Ray 03/14/17 1438 Signed Impressions: Service Date/Time: Tuesday, March 14, 2017 14:53 - CONCLUSION: Diffuse soft tissue swelling. Simone Junior MD Chest X-Ray 03/14/17 1435 Signed Impressions: Service Date/Time: Tuesday, March 14, 2017 14:48 - CONCLUSION: Mild right lower lung infiltrate. Simone Junior MD Objective Remarks General: NAD, AAOx3 Chest: CTA Cardiac: Irregular Abd: +Bs, soft ND/NT Ext: lower ext edema worse today than yesterday, left great toe/dorsal foot erythematous with fluid collection on anterior surface. A/P Problem List: (1) Cellulitis of left foot ICD Codes: L03.116 - Cellulitis of left lower limb Status: Acute Plan: - Pt is a 81 y/o male with atrial fibrillation on chronic anticoagulation with Coumadin, HTN, Hyperlipidemia, Parkinson's Disease who presents to the ED with complaints of left foot swelling, pain and erythema over the last few days. He had injured his foot around 1 week ago. - Xray in the ED with noted diffuse soft tissue swelling - Blood Cx (03/14/17) --> NGTD - Vancomycin (03/14 - present), pharmacy to monitor vanc levels - WBC down to 10.5 (03/19) - Pt with noted significant LE edema which he reports has worsened over the last 6 months - Echocardiogram (03/14/17) --> EF 60-65%, b/l atrial enlargement -edema L foot worse today than yesterday erythema about the same will repeat CT with contrast to evaluated further for abscess - discussed plan with patient at bedside and daughter over the phone - supportive care - DVT prophylaxis with Coumadin (to be held today for supra-therapeutic INR) - PT has recommended SNF at the end of hospitalization. Pt would strongly prefer to discharge to home. (2) Leg edema ICD Codes: R60.0 - Localized edema Plan: - See above. (3) Atrial fibrillation ICD Codes: I48.91 - Unspecified atrial fibrillation Status: Chronic Plan: - Metoprolol 100mg BID resumed and HR better controlled - BP still low but stable. - Digoxin stopped on 03/16 - Coumadin to be held for supra-therapeutic INR 4.4 on 03/18 - Appreciate Cardiology Consultation (4) HTN (hypertension) ICD Codes: I10 - Essential (primary) hypertension Status: Chronic Plan: - Hold on continuing Lisinopril - Cont. Metoprolol - Monitor (5) CAD (coronary artery disease) ICD Codes: I25.10 - Atherosclerotic heart disease of [place] coronary artery without angina pectoris Status: Chronic (6) Parkinson disease ICD Codes: G20 - Parkinson's disease Status: Chronic Plan: - Home meds continued (7) Alcohol use ICD Codes: Z78.9 - Other specified health status Status: Chronic Plan: - Pt drinks alcohol daily but denies any hx of withdrawal but has tremors related to his Parkinson's - Ativan PRN - Alcohol withdrawal precautions Assessment and Plan Patient examined. Assessment and plan formulated with Andreina Lombardi PA-C. I agree with the above. Problem Qualifiers (1) Atrial fibrillation: Qualified Codes: I48.2 - Chronic atrial fibrillation (2) CAD (coronary artery disease): Qualified Codes: I25.10 - Atherosclerotic heart disease of [place] coronary artery without angina pectoris Andreina Lombardi Mar 19, 2017 17:34 Francis Argueta DO Mar 23, 2017 18:41
[2017-03-19] MEDS ORDERED: IOHEXOL 350 MG/ML 10 ML VIAL (for RAD DIAG) IVCONTRAST ONE (19:52)
[2017-03-19] MEDS: ATORVASTATIN 80 MG TAB PO SCH (22:02)
[2017-03-19] MEDS: DOCUSATE SODIUM 100 MG CAP PO SCH (22:02)
[2017-03-19] MEDS: TEMAZEPAM 15 MG CAP PO PRN (22:02)
--- NOTE | 2017-03-19 23:13 | RADRPT ---
EXAM DATE/TIME: 03/19/2017 19:26 [place] COMPARISON: No previous studies available for comparison. INDICATIONS : Redness and swelling left foot possible abscess. IV CONTRAST: 68 cc Omnipaque 350 (iohexol) IV RADIATION DOSE: 21.9 CTDIvol (mGy) MEDICAL HISTORY : Parkinson's. Afib, SURGICAL HISTORY : None. ENCOUNTER: Initial ACUITY: 1 day PAIN SCALE: 7/10 LOCATION: Left Foot TECHNIQUE: Volumetric scanning of the foot was performed. Using automated exposure control and adjustment of th e mA and/or kV according to patient size, radiation dose was kept as low as reasonably achievable to obtain optimal diagnostic quality images. DICOM format image data is available electronically for re view and comparison. FINDINGS: BONES: No evidence of fracture. Alignment is within normal limits. JOINTS: Mild arthritic changes. SOFT TISSUES: There is extensive phlegmonous low density in the soft tissues dorsal to the first metatarsal and pro ximal great toe, likely complex abscess fluid. Extensive cellulitic change is present elsewhere throu ghout the visualized foot and ankle. CONCLUSION: Phlegmonous change or complex abscess dorsal to the first metatarsophalangeal joint and adjacent stru ctures. Shivam Agudelo MD on March 19, 2017 at 23:08 Board Certified Radiologist. This report was verified electronically.
[2017-03-20] VITALS (7 sets, daily range): BP systolic 98–106; BP diastolic 55–66; PULSE 63–107; RESP 17–18; TEMP 97.7–98.5; O2SAT 95–100
[2017-03-20] MEDS ORDERED: PHARMACY ORDERED LAB ONE (02:45)
[2017-03-20] MEDS: VANCOMYCIN INJ 1,000 MG in SODIUM CHLOR 0.9% 250 ML INJ 250 ML IV SCH (03:26)
[2017-03-20] MEDS: PANTOPRAZOLE SOD 20 MG DELAYED RELEASE TAB PO SCH (05:33)
[2017-03-20] MEDS: ENTACAPONE 200 MG PO SCH ×4 (05:33→18:12)
[2017-03-20] MEDS: CARBIDOPA/LEVODOPA 25 MG/100 MG TAB PO SCH ×4 (05:33→18:12)
[2017-03-20] MEDS: ACETAMINOPHEN/HYDROcodone 325 MG/10 MG TAB PO PRN ×3 (08:59→20:16)
[2017-03-20] MEDS: DOCUSATE SODIUM 100 MG CAP PO SCH ×2 (08:59→20:21)
[2017-03-20] MEDS: METOPROLOL TARTRATE 100 MG TAB PO SCH ×2 (09:00→20:21)
[2017-03-20 14:12] LABS: PROTHROMBIN TIME - PATIENT 59.4 SEC (9.8-11.6)
[2017-03-20] MEDS ORDERED: PHYTONADIONE 5 MG TAB PO ONE (15:30)
--- NOTE | 2017-03-20 15:34 | HHI.PR ---
Subjective Remarks Patient reports feeling well offers no specific complaints INR 5.0 no active signs of bleeding Objective Vitals Vital Signs Date Time Temp Pulse Resp B/P (MAP) Pulse Ox O2 Delivery O2 Flow Rate FiO2 03/20/17 12:00 98.2 88 18 105/55 (72) 97 03/20/17 09:12 Room Air 03/20/17 09:12 68 03/20/17 08:00 98.1 68 18 104/66 (79) 96 03/20/17 04:00 97.7 84 17 98/58 (71) 98 03/20/17 00:00 98.5 63 18 105/56 (72) 95 03/19/17 20:00 98.1 103 18 116/63 (80) 92 03/19/17 20:00 Room Air 03/19/17 20:00 108 03/19/17 16:00 98.3 78 18 98/66 (77) 94 Result Diagram: 03/19/17 0700 03/19/17 07 Other Results Laboratory Tests Test 03/18/17 07:00 03/19/17 07:00 03/20/17 03:00 03/20/17 13:47 Prothrombin Time 52.0 SEC 47.5 SEC 59.4 SEC Prothromb Time International Ratio 4.4 RATIO 4.0 RATIO 5.0 RATIO White Blood Count 10.5 TH/MM3 Red Blood Count 3.36 MIL/MM3 Hemoglobin 12.0 GM/DL Hematocrit 34.3 % Mean Corpuscular Volume 102.1 FL Mean Corpuscular Hemoglobin 35.9 PG Mean Corpuscular Hemoglobin Concent 35.2 % Red Cell Distribution Width 13.2 % Platelet Count 208 TH/MM3 Mean Platelet Volume 8.8 FL Neutrophils (%) (Auto) 73.8 % Lymphocytes (%) (Auto) 6.0 % Monocytes (%) (Auto) 15.9 % Eosinophils (%) (Auto) 3.7 % Basophils (%) (Auto) 0.6 % Neutrophils # (Auto) 7.8 TH/MM3 Lymphocytes # (Auto) 0.6 TH/MM3 Monocytes # (Auto) 1.7 TH/MM3 Eosinophils # (Auto) 0.4 TH/MM3 Basophils # (Auto) 0.1 TH/MM3 CBC Comment DIFF FINAL Differential Comment Blood Urea Nitrogen 12 MG/DL Creatinine 0.63 MG/DL Random Glucose 82 MG/DL Calcium Level 8.1 MG/DL Sodium Level 132 MEQ/L Potassium Level 4.0 MEQ/L Chloride Level 98 MEQ/L Carbon Dioxide Level 28.1 MEQ/L Anion Gap 6 MEQ/L Estimat Glomerular Filtration Rate 123 ML/MIN Vancomycin Level Trough 16.6 MCG/ML Imaging Last Impressions Foot X-Ray 03/14/17 1438 Signed Impressions: Service Date/Time: Tuesday, March 14, 2017 14:53 - CONCLUSION: Diffuse soft tissue swelling. Simone Junior MD Chest X-Ray 03/14/17 1435 Signed Impressions: Service Date/Time: Tuesday, March 14, 2017 14:48 - CONCLUSION: Mild right lower lung infiltrate. Simone Junior MD Objective Remarks General: NAD, AAOx3 Chest: CTA Cardiac: Irregular Abd: +Bs, soft ND/NT Ext: lower ext edema, left great toe/dorsal foot erythematous with fluid collection on anterior surface. A/P Problem List: (1) Cellulitis of left foot ICD Codes: L03.116 - Cellulitis of left lower limb Status: Acute Plan: - Pt is a 81 y/o male with atrial fibrillation on chronic anticoagulation with Coumadin, HTN, Hyperlipidemia, Parkinson's Disease who presents to the ED with complaints of left foot swelling, pain and erythema over the last few days. He had injured his foot around 1 week ago. - Xray in the ED with noted diffuse soft tissue swelling - Blood Cx (03/14/17) --> NG x 5 days - Vancomycin (03/14 - present), pharmacy to monitor vanco levels - WBC down to 10.5 (03/19) - Pt with noted significant LE edema which he reports has worsened over the last 6 months - Echocardiogram (03/14/17) --> EF 60-65%, b/l atrial enlargement - repeat CT left foot with contrast (03/20) reviewed and reveals phlegmonous change or complex abscess dorsal to the first metatarsophalangeal joint and adjacent structures - consult podiatry, case discussed with with Dr. Garcia who plans to due bedside I&D today and will do washout in OR once INR lower - discussed plan with patient at bedside and daughter over the phone - supportive care - DVT prophylaxis with Coumadin (held for supra-therapeutic INR (03/17/17) (03/20) INR 5.0, no active signs of bleeding continue to hold Coumadin and give vit K 5 mg now - recheck CBC, BMP and INR in AM - PT has recommended SNF at the end of hospitalization. Pt would strongly prefer to discharge to home. (2) Leg edema ICD Codes: R60.0 - Localized edema Plan: - See above. (3) Atrial fibrillation ICD Codes: I48.91 - Unspecified atrial fibrillation Status: Chronic Plan: - Metoprolol 100mg BID resumed and HR better controlled - BP still low but stable. - Digoxin stopped on 03/16 - Coumadin to be held for supra-therapeutic INR 4.4 on 03/17 last dose - Appreciate Cardiology Consultation (4) HTN (hypertension) ICD Codes: I10 - Essential (primary) hypertension Status: Chronic Plan: - Hold on continuing Lisinopril - Cont. Metoprolol - Monitor (5) CAD (coronary artery disease) ICD Codes: I25.10 - Atherosclerotic heart disease of [place] coronary artery without angina pectoris Status: Chronic (6) Parkinson disease ICD Codes: G20 - Parkinson's disease Status: Chronic Plan: - Home meds continued (7) Alcohol use ICD Codes: Z78.9 - Other specified health status Status: Chronic Plan: - Pt drinks alcohol daily but denies any hx of withdrawal but has tremors related to his Parkinson's - Ativan PRN - Alcohol withdrawal precautions Assessment and Plan Patient examined. Assessment and plan formulated with Andreina Lombardi PA-C. I agree with the above. Problem Qualifiers (1) Atrial fibrillation: Qualified Codes: I48.2 - Chronic atrial fibrillation (2) CAD (coronary artery disease): Qualified Codes: I25.10 - Atherosclerotic heart disease of [place] coronary artery without angina pectoris Andreina Lombardi Mar 20, 2017 15:34 Francis Argueta DO Mar 23, 2017 18:41
[2017-03-20] MEDS ORDERED: PHYTONADIONE 10 MG/ML VIAL SQ ONE (16:00)
[2017-03-20] MEDS: VANCOMYCIN INJ 1,500 MG in SODIUM CHLORID 0.9% 500 ML INJ 500 ML IV SCH (17:06)
--- NOTE | 2017-03-20 19:52 | PD.CONS ---
History of Present Illness Service Podiatry Consult Requested By Kendall Reason for Consult L foot infection Primary Care Physician Hamlet Ríos MD Diagnoses: History of Present Illness Patient states that he trips over his foot and scraped the top of the great toe. He says that it became more painful and swollen over the past few weeks. He says it only became really red when he got up to walk around. Past Family Social History Allergies: Coded Allergies: No Known Allergies (Verified , 03/14/17) Past Medical History A. fib HTN Hyperlipidemia Parkinson Disease CAD with hx of stent x 2 Skin cancer Alcohol abuse Past Surgical History Inguinal hernia repair x 2 Pilonidal cyst removal PTCA with stent placement to RCA and Left Circumflex in 2000 Reported Medications Colace (Docusate Sodium) 100 Mg Capsule PO BID Entacapone 200 Mg Tab 200 Mg PO QID administered concomitantly with each levodopa/carbidopa dose Carbidopa-Levodopa 25-100 Mg Tab 1 Tab PO Q8HR Warfarin 5 Mg Tab 5 Mg PO DAILY Lisinopril 5 Mg Tab 5 Mg PO DAILY Omeprazole 20 Mg Tab 20 Mg PO DAILY Atorvastatin (Atorvastatin Calcium) 80 Mg Tab 80 Mg PO HS Hydrochlorothiazide 25 Mg Tab 25 Mg PO EVERY OTHER DAY Metoprolol Tartrate 100 Mg Tab 100 Mg PO BID Active Ordered Medications Current Medications Medications (Trade) Dose Ordered Sig/Vita Route Start Time Stop Time Status Last Admin (NS Flush) 2 ml UNSCH PRN IV FLUSH 03/14/17 14:45 (Lipitor) 80 mg HS PO 03/14/17 21:00 03/19/17 22:02 (Sinemet 25-100 Mg) 1 tab 0600,1000,1400,1800 PO 03/14/17 18:00 03/20/17 18:12 (Coumadin) 5 mg Mo@1600 PO 03/17/17 16:00 Future Hold 03/17/17 15:11 (Coumadin) 2.5 mg SuTuWeThFrSa@1600 PO 03/14/17 18:00 Future Hold 03/16/17 17:12 (Protonix) 20 mg DAILY@0600 PO 03/15/17 06:00 03/20/17 05:33 (Ativan) 0.5 mg Q6H PRN PO 03/14/17 17:30 (Restoril) 15 mg HS PRN PO 03/14/17 17:30 03/19/17 22:02 ([place] 10-325 Mg) 1 tab Q4H PRN PO 03/16/17 07:45 03/20/17 15:27 Pharmacy Profile Note 0 ml @ 0 mls/hr UNSCH OTHER 03/16/17 15:30 Patient Own Medication POM:(Entacapone 200 MG) TABLET PO 0600,1000,1400,1800 0600,1000,1400,1800 PO 03/16/17 18:00 03/20/17 18:12 (Lopressor) 100 mg Q12HR PO 03/17/17 21:00 03/19/17 22:03 (Colace) 100 mg BID PO 03/19/17 21:00 03/20/17 08:59 (Milk Of [place]) 30 ml DAILY PRN PO 03/19/17 17:30 Vancomycin HCl 1500 mg/Sodium Chloride 515 ml @ 250 mls/hr Q24H IV 03/20/17 18:00 03/20/17 17:06 Miscellaneous Information SPECIFIC LAB TO BE DRAWN:VANCOMYCIN TROUGH DATE TO... ONCE ONCE .XX 03/23/17 17:45 03/23/17 17:46 Family History Father with hx of leukemia Mother from CHF 3 brother from CAD/SC Social History (+)Alcohol use, 3-4 glasses of wine per day, used to drink more heavily than that. Has been drinking for many years Denies any tobacco use Denies any illicit drug use Pt is and lives locally Physical Exam Vital Signs Vital Signs Date Time Temp Pulse Resp B/P (MAP) Pulse Ox O2 Delivery O2 Flow Rate FiO2 03/20/17 16:00 98.1 78 18 106/64 (78) 96 03/20/17 12:00 98.2 88 18 105/55 (72) 97 03/20/17 09:12 Room Air 03/20/17 09:12 68 03/20/17 08:00 98.1 68 18 104/66 (79) 96 03/20/17 04:00 97.7 84 17 98/58 (71) 98 03/20/17 00:00 98.5 63 18 105/56 (72) 95 03/19/17 20:00 98.1 103 18 116/63 (80) 92 03/19/17 20:00 Room Air 03/19/17 20:00 108 Physical Exam Palpable pedal pulses. Sensation intact Dorsal hallux with subcutaneous pocket of purulent material and area of fluctuance extending from dorsal hallux proximally along dorsal 1st metatarsal area. Upon I&D, approx 20mL milky purulent material expressed from the area. Erythema extends to dorsal midfoot from hallux with edema present. Painful to palpation. Laboratory Laboratory Tests Test 03/20/17 03:00 03/20/17 13:47 Vancomycin Level Trough 16.6 Prothrombin Time 59.4 Prothromb Time International Ratio 5.0 Date/Time Source Procedure Growth Status 03/14/17 14:40 Blood Peripheral Aerobic Blood Culture - Final NO GROWTH IN 5 DAYS Complete 03/14/17 14:40 Blood Peripheral Anaerobic Blood Culture - Final NO GROWTH IN 5 DAYS Complete Result Diagram: 03/19/17 0700 03/19/17 0700 Imaging Last 72 hours Impressions Lower Extremity CT 03/19/17 0000 Signed Impressions: Service Date/Time: Sunday, March 19, 2017 19:26 - CONCLUSION: Phlegmonous change or complex abscess dorsal to the first metatarsophalangeal joint and adjacent structures. Shivam Agudelo MD Assessment and Plan Assessment and Plan Abscess L dorsal foot Patient consented to I&D L foot abscess. Upon I&D, #15 blade utilized to make dorsal incision in central fluctuant area. Approx 20mL milky purulent material expressed from the area and cultured, followed by irrigation with NS and packing with 1/4'' iodoform gauze. Dressing changed ordered daily. No plan to OR yet. Will monitor progress of infection following procedure and discuss with Dr Argueta if necessary to go to OR. Culture results pending. Alice Garcia DPM Mar 20, 2017 19:52
[2017-03-20] MEDS: ATORVASTATIN 80 MG TAB PO SCH (20:21)
[2017-03-20] MEDS: TEMAZEPAM 15 MG CAP PO PRN (23:22)
[2017-03-21] VITALS (7 sets, daily range): BP systolic 99–160; BP diastolic 62–78; PULSE 75–98; RESP 17–20; TEMP 97.1–99.7; O2SAT 94–100
[2017-03-21] MEDS: CARBIDOPA/LEVODOPA 25 MG/100 MG TAB PO SCH ×4 (05:46→18:15)
[2017-03-21] MEDS: ENTACAPONE 200 MG PO SCH ×4 (05:46→18:15)
[2017-03-21] MEDS: ACETAMINOPHEN/HYDROcodone 325 MG/10 MG TAB PO PRN ×4 (05:47→20:05)
[2017-03-21] MEDS: PANTOPRAZOLE SOD 20 MG DELAYED RELEASE TAB PO SCH (05:57)
[2017-03-21] MEDS: METOPROLOL TARTRATE 100 MG TAB PO SCH ×2 (08:19→20:05)
[2017-03-21] MEDS: DOCUSATE SODIUM 100 MG CAP PO SCH ×2 (08:20→20:05)
[2017-03-21 09:27] LABS: AUTOMATED NEUTROPHIL # 5.6 TH/MM3 (1.8-7.7); BASOPHIL # 0.1 TH/MM3 (0-0.2); BASOPHIL % 0.8 % (0.0-2.0); EOSINOPHIL # 0.4 TH/MM3 (0-0.4); EOSINOPHIL % 5.6 % (0.0-4.0); HEMOGLOBIN 11.5 GM/DL (13.0-17.0); LYMPH % 7.3 % (9.0-44.0); LYMPHOCYTE # 0.6 TH/MM3 (1.0-4.8); MEAN CELL VOLUME 101.6 FL (80.0-100.0); MEAN CORPUSCULAR HEMOGLOBIN 34.5 PG (27.0-34.0); MEAN CORPUSCULAR HGB CONC 33.9 % (32.0-36.0); MEAN PLATELET VOLUME 8.6 FL (7.0-11.0); MONO % 15.3 % (0.0-8.0); MONOCYTE # 1.2 TH/MM3 (0-0.9); PLATELET COUNT 195 TH/MM3 (150-450); RED BLOOD COUNT 3.35 MIL/MM3 (4.50-5.90); RED CELL DISTRIBUTION WIDTH 13.1 % (11.6-17.2); WHITE BLOOD COUNT 7.9 TH/MM3 (4.0-11.0)
[2017-03-21 09:50] LABS: BICARBONATE 26.7 MEQ/L (21.0-32.0); CALCIUM 8.1 MG/DL (8.5-10.1); CREATININE 0.56 MG/DL (0.60-1.30)
--- NOTE | 2017-03-21 10:16 | HHI.PR ---
Subjective Remarks Patient reports feeling relief after podiatry did bedside I&D of left foot Offers no specific complaints at this time Objective Vitals Vital Signs Date Time Temp Pulse Resp B/P (MAP) Pulse Ox O2 Delivery O2 Flow Rate FiO2 03/21/17 08:25 Room Air 03/21/17 04:00 99.7 97 17 107/65 (79) 99 03/21/17 00:30 97.8 96 17 106/67 (80) 96 03/20/17 20:00 Room Air 03/20/17 20:00 98.2 107 18 102/65 (77) 100 03/20/17 20:00 97 03/20/17 16:00 98.1 78 18 106/64 (78) 96 03/20/17 12:00 98.2 88 18 105/55 (72) 97 Result Diagram: 03/21/17 0859 03/21/17 0859 Other Results Laboratory Tests Test 03/19/17 07:00 03/20/17 03:00 03/20/17 13:47 03/21/17 08:59 White Blood Count 10.5 TH/MM3 7.9 TH/MM3 Red Blood Count 3.36 MIL/MM3 3.35 MIL/MM3 Hemoglobin 12.0 GM/DL 11.5 GM/DL Hematocrit 34.3 % 34.0 % Mean Corpuscular Volume 102.1 FL 101.6 FL Mean Corpuscular Hemoglobin 35.9 PG 34.5 PG Mean Corpuscular Hemoglobin Concent 35.2 % 33.9 % Red Cell Distribution Width 13.2 % 13.1 % Platelet Count 208 TH/MM3 195 TH/MM3 Mean Platelet Volume 8.8 FL 8.6 FL Neutrophils (%) (Auto) 73.8 % 71.0 % Lymphocytes (%) (Auto) 6.0 % 7.3 % Monocytes (%) (Auto) 15.9 % 15.3 % Eosinophils (%) (Auto) 3.7 % 5.6 % Basophils (%) (Auto) 0.6 % 0.8 % Neutrophils # (Auto) 7.8 TH/MM3 5.6 TH/MM3 Lymphocytes # (Auto) 0.6 TH/MM3 0.6 TH/MM3 Monocytes # (Auto) 1.7 TH/MM3 1.2 TH/MM3 Eosinophils # (Auto) 0.4 TH/MM3 0.4 TH/MM3 Basophils # (Auto) 0.1 TH/MM3 0.1 TH/MM3 CBC Comment DIFF FINAL DIFF FINAL Differential Comment Prothrombin Time 47.5 SEC 59.4 SEC 35.0 SEC Prothromb Time International Ratio 4.0 RATIO 5.0 RATIO 3.0 RATIO Blood Urea Nitrogen 12 MG/DL 9 MG/DL Creatinine 0.63 MG/DL 0.56 MG/DL Random Glucose 82 MG/DL 92 MG/DL Calcium Level 8.1 MG/DL 8.1 MG/DL Sodium Level 132 MEQ/L 134 MEQ/L Potassium Level 4.0 MEQ/L 3.7 MEQ/L Chloride Level 98 MEQ/L 101 MEQ/L Carbon Dioxide Level 28.1 MEQ/L 26.7 MEQ/L Anion Gap 6 MEQ/L 6 MEQ/L Estimat Glomerular Filtration Rate 123 ML/MIN 141 ML/MIN Vancomycin Level Trough 16.6 MCG/ML Imaging Last Impressions Foot X-Ray 03/14/17 1438 Signed Impressions: Service Date/Time: Tuesday, March 14, 2017 14:53 - CONCLUSION: Diffuse soft tissue swelling. Simone Junior MD Chest X-Ray 03/14/17 1435 Signed Impressions: Service Date/Time: Tuesday, March 14, 2017 14:48 - CONCLUSION: Mild right lower lung infiltrate. Simone Junior MD Objective Remarks General: NAD, AAOx3 Chest: CTA Cardiac: Irregular Abd: +Bs, soft ND/NT Ext: lower ext no longer has fluctuant area, erythema still present Procedures bedside I&D of Left foot abscess 03/20/[address] Garcia A/P Problem List: (1) Cellulitis of left foot ICD Codes: L03.116 - Cellulitis of left lower limb Status: Acute Plan: - Pt is a 81 y/o male with atrial fibrillation on chronic anticoagulation with Coumadin, HTN, Hyperlipidemia, Parkinson's Disease who presents to the ED with complaints of left foot swelling, pain and erythema over the last few days. He had injured his foot around 1 week ago. - Xray in the ED with noted diffuse soft tissue swelling - Blood Cx (03/14/17) --> NG x 5 days - Vancomycin (03/14 - present), pharmacy to monitor vanco levels - WBC down to 10.5 (03/19) -> 7.9 (03/21) - Pt with noted significant LE edema which he reports has worsened over the last 6 months - Echocardiogram (03/14/17) --> EF 60-65%, b/l atrial enlargement - repeat CT left foot with contrast (03/20) reviewed and reveals phlegmonous change or complex abscess dorsal to the first metatarsophalangeal joint and adjacent structures - consult podiatry, case discussed with with Dr. Garcia patient s/p bedside I& D (03/20) and will do washout in OR if needed once INR improved - wound cultured 03/20 during I&D reveals MRSA, continue Vancomycin - discussed plan with patient at bedside and daughter over the phone (03/19 ) - supportive care - DVT prophylaxis with Coumadin (held for supra-therapeutic INR (03/17/17) (03/20) INR 5.0, no active signs of bleeding continue to hold Coumadin and give vit K 5 mg now (03/21) INR 3.0, continue to hold Coumadin give additional Vit K 5 mg today and recheck in AM - PT has recommended SNF at the end of hospitalization. Pt would strongly prefer to discharge to home. (2) Leg edema ICD Codes: R60.0 - Localized edema Plan: - See above. (3) Atrial fibrillation ICD Codes: I48.91 - Unspecified atrial fibrillation Status: Chronic Plan: - Metoprolol 100mg BID resumed and HR better controlled - BP still low but stable. - Digoxin stopped on 03/16 due to supra-therapeutic INR - Appreciate Cardiology Consultation - see above (4) HTN (hypertension) ICD Codes: I10 - Essential (primary) hypertension Status: Chronic Plan: - Hold on continuing Lisinopril - Cont. Metoprolol - Monitor (5) CAD (coronary artery disease) ICD Codes: I25.10 - Atherosclerotic heart disease of [place] coronary artery without angina pectoris Status: Chronic (6) Parkinson disease ICD Codes: G20 - Parkinson's disease Status: Chronic Plan: - Home meds continued (7) Alcohol use ICD Codes: Z78.9 - Other specified health status Status: Chronic Plan: - Pt drinks alcohol daily but denies any hx of withdrawal but has tremors related to his Parkinson's - Ativan PRN - Alcohol withdrawal precautions Assessment and Plan Patient examined. Assessment and plan formulated with Andreina Stackpole PA-C. I agree with the above. Problem Qualifiers (1) Atrial fibrillation: Qualified Codes: I48.2 - Chronic atrial fibrillation (2) CAD (coronary artery disease): Qualified Codes: I25.10 - Atherosclerotic heart disease of [place] coronary artery without angina pectoris Andreina Lombardi Mar 21, 2017 10:16 Francis Argueta DO Mar 23, 2017 18:42
--- NOTE | 2017-03-21 16:47 | PD.POD ---
Subjective Podiatric Problems L foot abscess, s/p bedside I&D [place] 03/20/17 Past Med/Surg/Social History Social History Smoking Status: Former Smoker Objective Vital Signs Vital Signs Date Time Temp Pulse Resp B/P (MAP) Pulse Ox O2 Delivery O2 Flow Rate FiO2 03/21/17 12:00 97.6 98 18 105/62 (76) 94 03/21/17 10:15 87 03/21/17 08:25 Room Air 03/21/17 08:00 97.4 85 20 99/64 (76) 98 03/21/17 04:00 99.7 97 17 107/65 (79) 99 03/21/17 00:30 97.8 96 17 106/67 (80) 96 03/20/17 20:00 Room Air 03/20/17 20:00 98.2 107 18 102/65 (77) 100 03/20/17 20:00 97 Coded Allergies: No Known Allergies (Verified , 03/14/17) Medications and IVs Current Medications Medications (Trade) Dose Ordered Sig/Vita Route Start Time Stop Time Status Last Admin (NS Flush) 2 ml UNSCH PRN IV FLUSH 03/14/17 14:45 (Lipitor) 80 mg HS PO 03/14/17 21:00 03/20/17 20:21 (Sinemet 25-100 Mg) 1 tab 0600,1000,1400,1800 PO 03/14/17 18:00 03/21/17 14:29 (Coumadin) 5 mg Mo@1600 PO 03/17/17 16:00 Future Hold 03/17/17 15:11 (Coumadin) 2.5 mg SuTuWeThFrSa@1600 PO 03/14/17 18:00 Future Hold 03/16/17 17:12 (Protonix) 20 mg DAILY@0600 PO 03/15/17 06:00 03/21/17 05:57 (Ativan) 0.5 mg Q6H PRN PO 03/14/17 17:30 (Restoril) 15 mg HS PRN PO 03/14/17 17:30 03/20/17 23:22 ([place] 10-325 Mg) 1 tab Q4H PRN PO 03/16/17 07:45 03/21/17 15:02 Pharmacy Profile Note 0 ml @ 0 mls/hr UNSCH OTHER 03/16/17 15:30 Patient Own Medication POM:(Entacapone 200 MG) TABLET PO 0600,1000,1400,1800 0600,1000,1400,1800 PO 03/16/17 18:00 03/21/17 14:29 (Lopressor) 100 mg Q12HR PO 03/17/17 21:00 03/20/17 20:21 (Colace) 100 mg BID PO 03/19/17 21:00 03/21/17 08:20 (Milk Of [place]) 30 ml DAILY PRN PO 03/19/17 17:30 Vancomycin HCl 1500 mg/Sodium Chloride 515 ml @ 250 mls/hr Q24H IV 03/20/17 18:00 03/20/17 17:06 Miscellaneous Information SPECIFIC LAB TO BE DRAWN:VANCOMYCIN TROUGH DATE TO... ONCE ONCE .XX 03/23/17 17:45 03/23/17 17:46 Other Results Microbiology Date/Time Source Procedure Growth Status 03/14/17 14:40 Blood Peripheral Aerobic Blood Culture - Final NO GROWTH IN 5 DAYS Complete 03/14/17 14:40 Blood Peripheral Anaerobic Blood Culture - Final NO GROWTH IN 5 DAYS Complete 03/20/17 20:15 Abscess Foot Gram Stain - Final Resulted 03/20/17 20:15 Wound Culture - Preliminary S. Aureus Mrsa Resulted Exam-Podiatry Remarks L dorsal foot with packing present dorsal 1st MTP area. Erythema and edema reducing, but still present. Pain still present. Assessment & Plan A/P L foot abscess, s/p bedside I&D [place] 03/20/17 Culture resulted + MRSA Continue daily irrigation/packing L dorsal foot as ordered. Continue IV antibiotics Plan to OR Friday morning with Dr Velázquez 0800 Ordered Consent and NPO after midnight tomorrow night Alice Garcia DPM Mar 21, 2017 16:47
[2017-03-21] MEDS: VANCOMYCIN INJ 1,500 MG in SODIUM CHLORID 0.9% 500 ML INJ 500 ML IV SCH (18:15)
[2017-03-21] MEDS: ATORVASTATIN 80 MG TAB PO SCH (20:05)
[2017-03-22] VITALS (7 sets, daily range): BP systolic 105–118; BP diastolic 59–75; PULSE 71–94; RESP 18–20; TEMP 97.6–97.9; O2SAT 92–99
[2017-03-22] MEDS: CARBIDOPA/LEVODOPA 25 MG/100 MG TAB PO SCH ×4 (06:37→18:08)
[2017-03-22] MEDS: PANTOPRAZOLE SOD 20 MG DELAYED RELEASE TAB PO SCH (06:37)
[2017-03-22] MEDS: ACETAMINOPHEN/HYDROcodone 325 MG/10 MG TAB PO PRN ×5 (06:37→22:42)
[2017-03-22] MEDS: ENTACAPONE 200 MG PO SCH ×4 (06:38→18:00)
[2017-03-22 08:47] LABS: INTERNATIONAL NORMALIZED RATIO 1.6 RATIO; PROTHROMBIN TIME - PATIENT 18.5 SEC (9.8-11.6)
[2017-03-22] MEDS: DOCUSATE SODIUM 100 MG CAP PO SCH ×2 (09:15→22:22)
[2017-03-22] MEDS: METOPROLOL TARTRATE 100 MG TAB PO SCH ×2 (09:15→22:23)
--- NOTE | 2017-03-22 12:04 | HHI.PR ---
Subjective Remarks Patient having occasional nonproductive cough and edema BUE and BLE Objective Vitals Vital Signs Date Time Temp Pulse Resp B/P (MAP) Pulse Ox O2 Delivery O2 Flow Rate FiO2 03/22/17 08:00 97.8 75 18 105/59 (74) 92 03/22/17 05:18 97.9 78 18 118/60 (79) 99 03/22/17 00:19 97.8 72 18 111/72 (85) 99 03/21/17 21:26 98.3 75 17 160/78 (105) 100 03/21/17 20:00 Room Air 03/21/17 16:00 97.1 89 18 111/63 (79) 96 Result Diagram: 03/21/17 0859 03/21/17 0859 Other Results Laboratory Tests Test 03/20/17 03:00 03/20/17 13:47 03/21/17 08:59 03/22/17 08:13 Vancomycin Level Trough 16.6 MCG/ML Prothrombin Time 59.4 SEC 35.0 SEC 18.5 SEC Prothromb Time International Ratio 5.0 RATIO 3.0 RATIO 1.6 RATIO White Blood Count 7.9 TH/MM3 Red Blood Count 3.35 MIL/MM3 Hemoglobin 11.5 GM/DL Hematocrit 34.0 % Mean Corpuscular Volume 101.6 FL Mean Corpuscular Hemoglobin 34.5 PG Mean Corpuscular Hemoglobin Concent 33.9 % Red Cell Distribution Width 13.1 % Platelet Count 195 TH/MM3 Mean Platelet Volume 8.6 FL Neutrophils (%) (Auto) 71.0 % Lymphocytes (%) (Auto) 7.3 % Monocytes (%) (Auto) 15.3 % Eosinophils (%) (Auto) 5.6 % Basophils (%) (Auto) 0.8 % Neutrophils # (Auto) 5.6 TH/MM3 Lymphocytes # (Auto) 0.6 TH/MM3 Monocytes # (Auto) 1.2 TH/MM3 Eosinophils # (Auto) 0.4 TH/MM3 Basophils # (Auto) 0.1 TH/MM3 CBC Comment DIFF FINAL Differential Comment Blood Urea Nitrogen 9 MG/DL Creatinine 0.56 MG/DL Random Glucose 92 MG/DL Calcium Level 8.1 MG/DL Sodium Level 134 MEQ/L Potassium Level 3.7 MEQ/L Chloride Level 101 MEQ/L Carbon Dioxide Level 26.7 MEQ/L Anion Gap 6 MEQ/L Estimat Glomerular Filtration Rate 141 ML/MIN Imaging Last Impressions Foot X-Ray 03/14/17 1438 Signed Impressions: Service Date/Time: Tuesday, March 14, 2017 14:53 - CONCLUSION: Diffuse soft tissue swelling. Simone Junior MD Chest X-Ray 03/14/17 1435 Signed Impressions: Service Date/Time: Tuesday, March 14, 2017 14:48 - CONCLUSION: Mild right lower lung infiltrate. Simone Junior MD Objective Remarks General: NAD, AAOx3 Chest: CTA Cardiac: Irregular Abd: +Bs, soft ND/NT Ext: lower ext dressing removed and purulent drainage expressed BUE and BLE 2+ pitting edema Procedures bedside I&D of Left foot abscess 03/20/[address] Garcia A/P Problem List: (1) Cellulitis of left foot ICD Codes: L03.116 - Cellulitis of left lower limb Status: Acute Plan: - Pt is a 81 y/o male with atrial fibrillation on chronic anticoagulation with Coumadin, HTN, Hyperlipidemia, Parkinson's Disease who presents to the ED with complaints of left foot swelling, pain and erythema over the last few days. He had injured his foot around 1 week ago. - Xray in the ED with noted diffuse soft tissue swelling - Blood Cx (03/14/17) --> NG x 5 days - Vancomycin (03/14 - present), pharmacy to monitor vanco levels - WBC down to 10.5 (03/19) -> 7.9 (03/21) - Pt with noted significant LE edema which he reports has worsened over the last 6 months - Echocardiogram (03/14/17) --> EF 60-65%, b/l atrial enlargement - repeat CT left foot with contrast (03/20) reviewed and reveals phlegmonous change or complex abscess dorsal to the first metatarsophalangeal joint and adjacent structures - consult podiatry, case discussed with with Dr. Garcia patient s/p bedside I& D (03/20) and Plan OR Friday 03/[address] 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 Pt would strongly prefer to discharge to home. (2) Leg edema ICD Codes: R60.0 - Localized edema Plan: Lasix 40 mg IV x1 CXR BMP in AM (3) Atrial fibrillation ICD Codes: I48.91 - Unspecified atrial fibrillation Status: Chronic Plan: - Metoprolol 100mg BID resumed and HR better controlled - BP still low but stable. - Coumadin stopped on 03/16 due to supra-therapeutic INR - Appreciate Cardiology Consultation - see above (4) HTN (hypertension) ICD Codes: I10 - Essential (primary) hypertension Status: Chronic Plan: - Hold on continuing Lisinopril - Cont. Metoprolol - Monitor (5) CAD (coronary artery disease) ICD Codes: I25.10 - Atherosclerotic heart disease of [place] coronary artery without angina pectoris Status: Chronic (6) Parkinson disease ICD Codes: G20 - Parkinson's disease Status: Chronic Plan: - Home meds continued (7) Alcohol use ICD Codes: Z78.9 - Other specified health status Status: Chronic Plan: - Pt drinks alcohol daily but denies any hx of withdrawal but has tremors related to his Parkinson's - Ativan PRN - Alcohol withdrawal precautions Assessment and Plan Patient examined. Assessment and plan formulated with Anrdeina Lombardi PA-C. I agree with the above. Problem Qualifiers (1) Atrial fibrillation: Qualified Codes: I48.2 - Chronic atrial fibrillation (2) CAD (coronary artery disease): Qualified Codes: I25.10 - Atherosclerotic heart disease of [place] coronary artery without angina pectoris Andreina Lombardi Mar 22, 2017 12:04 Francis Argueta DO Mar 23, 2017 18:43
[2017-03-22] MEDS ORDERED: FUROSEMIDE 40 MG/4 ML VIAL IV PUSH ONE (14:00)
[2017-03-22] MEDS ORDERED: POTASSIUM CHLORIDE 20 MEQ CONTROLLED RELEASE TAB PO ONE (14:00)
--- NOTE | 2017-03-22 14:44 | RADRPT ---
EXAM DATE/TIME: 03/22/2017 15:00 [facility] COMPARISON: CHEST SINGLE AP, March 14, 2017, 14:48. INDICATIONS : Evaluate for pneumonia, pneumothorax and communicable disease. Pre op for cellulitis of foot. MEDICAL HISTORY : Cardiovascular disease. A-fib SURGICAL HISTORY : Coronary artery stent. ENCOUNTER: Initial ACUITY: 1 day PAIN SCORE: 0/10 LOCATION: Bilateral chest FINDINGS: A single AP erect portable view of the chest was obtained and now demonstrates small bilateral pleura l effusions. There is patchy opacity in both lung bases and this appears new on the left. The heart s ize is mildly enlarged. There is no definite perihilar edema. The bony thorax remains intact. There a re multiple overlying electrocardiogram leads. CONCLUSION: 1. Small pleural effusions with patchy opacity the lung bases which may represent infiltrate. 2. Mild cardiomegaly. Chance Leon MD on March 22, 2017 at 14:41 Board Certified Radiologist. This report was verified electronically.
--- NOTE | 2017-03-22 17:46 | PD.POD ---
Subjective Pain score: 2 Remarks foot feels like it is improving seen bedside with and daughter Past Med/Surg/Social History Social History Smoking Status: Former Smoker Objective Vital Signs Vital Signs Date Time Temp Pulse Resp B/P (MAP) Pulse Ox O2 Delivery O2 Flow Rate FiO2 03/22/17 12:00 97.8 94 18 118/75 (89) 92 03/22/17 11:00 94 Room Air 03/22/17 09:00 74 03/22/17 08:00 97.8 75 18 105/59 (74) 92 03/22/17 05:18 97.9 78 18 118/60 (79) 99 03/22/17 00:19 97.8 72 18 111/72 (85) 99 03/21/17 21:26 98.3 75 17 160/78 (105) 100 03/21/17 20:00 Room Air Coded Allergies: No Known Allergies (Verified , 03/14/17) Medications and IVs Administered Medications Medications (Trade) Dose Ordered Sig/Vita Route PRN Reason Start Time Stop Time Status Last Admin Dose Admin Atorvastatin Calcium (Lipitor) 80 mg HS PO 03/14/17 21:00 03/21/17 20:05 Carbidopa/Levodopa (Sinemet 25-100 Mg) 1 tab 0600,1000,1400,1800 PO 03/14/17 18:00 03/22/17 14:41 Warfarin Sodium (Coumadin) 5 mg Mo@1600 PO 03/17/17 16:00 Future Hold 03/17/17 15:11 Warfarin Sodium (Coumadin) 2.5 mg SuTuWeThFrSa@1600 PO 03/14/17 18:00 Future Hold 03/16/17 17:12 Pantoprazole Sodium (Protonix) 20 mg DAILY@0600 PO 03/15/17 06:00 03/22/17 06:37 Temazepam (Restoril) 15 mg HS PRN PO insomnia 03/14/17 17:30 03/20/17 23:22 Acetaminophen/ Hydrocodone Bitart ([place] 10-325 Mg) 1 tab Q4H PRN PO pain 4-10 03/16/17 07:45 03/22/17 14:43 Patient Own Medication POM:(Entacapone 200 MG) TABLET PO 0600,1000,1400,1800 0600,1000,1400,1800 PO 03/16/17 18:00 03/22/17 14:00 Metoprolol Tartrate (Lopressor) 100 mg Q12HR PO 03/17/17 21:00 03/22/17 09:15 Docusate Sodium (Colace) 100 mg BID PO 03/19/17 21:00 03/22/17 09:15 Vancomycin HCl 1500 mg/Sodium Chloride 515 ml @ 250 mls/hr Q24H IV 03/20/17 18:00 03/21/17 18:15 Other Results Last 72 hours Impressions Chest X-Ray 03/22/17 0000 Signed Impressions: Service Date/Time: Wednesday, March 22, 2017 15:00 - CONCLUSION: 1. Small pleural effusions with patchy opacity the lung bases which may represent infiltrate. 2. Mild cardiomegaly. Chance Leon MD Laboratory Tests Test 03/22/17 08:13 Prothromb Time International Ratio 1.6 RATIO Prothrombin Time 18.5 SEC (9.8-11.6) Laboratory Tests Test 03/21/17 08:59 White Blood Count 7.9 TH/MM3 Red Blood Count 3.35 MIL/MM3 Hemoglobin 11.5 GM/DL Hematocrit 34.0 % Mean Corpuscular Volume 101.6 FL Mean Corpuscular Hemoglobin 34.5 PG Mean Corpuscular Hemoglobin Concent 33.9 % Red Cell Distribution Width 13.1 % Platelet Count 195 TH/MM3 Mean Platelet Volume 8.6 FL Neutrophils (%) (Auto) 71.0 % Lymphocytes (%) (Auto) 7.3 % Monocytes (%) (Auto) 15.3 % Eosinophils (%) (Auto) 5.6 % Basophils (%) (Auto) 0.8 % Neutrophils # (Auto) 5.6 TH/MM3 Lymphocytes # (Auto) 0.6 TH/MM3 Monocytes # (Auto) 1.2 TH/MM3 Eosinophils # (Auto) 0.4 TH/MM3 Basophils # (Auto) 0.1 TH/MM3 CBC Comment DIFF FINAL Differential Comment Laboratory Tests Test 03/21/17 08:59 Blood Urea Nitrogen 9 MG/DL Creatinine 0.56 MG/DL Random Glucose 92 MG/DL Calcium Level 8.1 MG/DL Sodium Level 134 MEQ/L Potassium Level 3.7 MEQ/L Chloride Level 101 MEQ/L Carbon Dioxide Level 26.7 MEQ/L Anion Gap 6 MEQ/L Estimat Glomerular Filtration Rate 141 ML/MIN Microbiology Date/Time Source Procedure Growth Status 03/20/17 20:15 Abscess Foot Gram Stain - Final Complete 03/20/17 20:15 Wound Culture - Final S. Aureus Mrsa Complete RADIOLOGY CONSULTATION REPORT - Continued Ordered By: Andreina Maria C PETER MR#: [id number] : 1935 Attended By: Simone Gomez MD Loc: N04B Age: 81 Copy To: Hamlet Ríos MD Pt Name: MIGNON ALEJO MD Bed: 1428-A Order #: [id number] Page 2 of 2 Signed Report #:[id number] Doctor Entered in [facility] DEPARTMENT OF RADIOLOGY [address] [place], [place] [id number] [address] [place] [id number] [address] [place] [address] RADIOLOGY CONSULTATION REPORT Ordered By: Andreina PETER MR#: [id number] : 1935 Attended By: Simone Gomez MD Loc: N04B Age: 81 Copy To: Hamlet Ríos MD Bed: 1428A Hamlet Ríos MD Order #: [id number] Page 1 of 2 Signed Report #:[id number] Doctor Entered in [facility] MIGNON ALEJO Signed EXAM DATE/TIME: 03/19/2017 19:26 [facility] COMPARISON: No previous studies available for comparison. INDICATIONS : Redness and swelling left foot possible abscess. IV CONTRAST: 68 cc Omnipaque 350 (iohexol) IV RADIATION DOSE: 21.9 CTDIvol (mGy) MEDICAL HISTORY : Parkinson's. Afib, SURGICAL HISTORY : None. ENCOUNTER: Initial ACUITY: 1 day PAIN SCALE: 7/10 LOCATION: Left Foot TECHNIQUE: Volumetric scanning of the foot was performed. Using automated exposure control and adjustment of the mA and/or kV according to patient size, radiation dose was kept as low as reasonably achievable to obtain optimal diagnostic quality images. DICOM format image data is available electronically for review and comparison. FINDINGS: BONES: No evidence of fracture. Alignment is within normal limits. JOINTS: Mild arthritic changes. SOFT TISSUES: There is extensive phlegmonous low density in the soft tissues dorsal to the first metatarsal and proximal great toe, likely complex abscess fluid. Extensive cellulitic change is present elsewhere throughout the visualized foot and ankle. CONCLUSION: Phlegmonous change or complex abscess dorsal to the first metatarsophalangeal joint and adjacent structures. Mignon Agudelo MD on March 19, 2017 at 23:08 Board Certified Radiologist. This report was verified electronically. Physical Exam General appearance: comfortable Peripheral pulses: Pulse exam of foot: Performed Left dorsalis pedis: normal Right dorsalis pedis: normal Edema: Left lower extremity: 3+, pitting Feet - visual inspection: Ulcerations: toe (1st MPJ fissure open draining redness of entore dorsal of the foot not involving ankle, no gas no ischemia) Left lower extremity: Left lower extremity: FINDINGS: normal Range of motion: normal Muscle strength/tone: FINDINGS: normal Assessment & Plan Diagnosis: (1) Abscess of left foot including toes ICD Codes: L02.612 - Cutaneous abscess of left foot (2) Cellulitis of left foot ICD Codes: L03.116 - Cellulitis of left lower limb Status: Acute A/P INR is ok for surgery, MRSA confirmed, Incision drainage planned, risks and benefits reviewed, may need more surgery at a later date, and will likely need minimum of 2-4 IV ABX. NPO and consent signed. Bright Velázquez DPM Mar 22, 2017 17:45
--- NOTE | 2017-03-22 17:46 | PD.POD ---
Subjective Pain score: 2 Remarks foot feels like it is improving seen bedside with and daughter Past Med/Surg/Social History Social History Smoking Status: Former Smoker Objective Vital Signs Vital Signs Date Time Temp Pulse Resp B/P (MAP) Pulse Ox O2 Delivery O2 Flow Rate FiO2 03/22/17 12:00 97.8 94 18 118/75 (89) 92 03/22/17 11:00 94 Room Air 03/22/17 09:00 74 03/22/17 08:00 97.8 75 18 105/59 (74) 92 03/22/17 05:18 97.9 78 18 118/60 (79) 99 03/22/17 00:19 97.8 72 18 111/72 (85) 99 03/21/17 21:26 98.3 75 17 160/78 (105) 100 03/21/17 20:00 Room Air Coded Allergies: No Known Allergies (Verified , 03/14/17) Medications and IVs Administered Medications Medications (Trade) Dose Ordered Sig/Vita Route PRN Reason Start Time Stop Time Status Last Admin Dose Admin Atorvastatin Calcium (Lipitor) 80 mg HS PO 03/14/17 21:00 03/21/17 20:05 Carbidopa/Levodopa (Sinemet 25-100 Mg) 1 tab 0600,1000,1400,1800 PO 03/14/17 18:00 03/22/17 14:41 Warfarin Sodium (Coumadin) 5 mg Mo@1600 PO 03/17/17 16:00 Future Hold 03/17/17 15:11 Warfarin Sodium (Coumadin) 2.5 mg SuTuWeThFrSa@1600 PO 03/14/17 18:00 Future Hold 03/16/17 17:12 Pantoprazole Sodium (Protonix) 20 mg DAILY@0600 PO 03/15/17 06:00 03/22/17 06:37 Temazepam (Restoril) 15 mg HS PRN PO insomnia 03/14/17 17:30 03/20/17 23:22 Acetaminophen/ Hydrocodone Bitart ([place] 10-325 Mg) 1 tab Q4H PRN PO pain 4-10 03/16/17 07:45 03/22/17 14:43 Patient Own Medication POM:(Entacapone 200 MG) TABLET PO 0600,1000,1400,1800 0600,1000,1400,1800 PO 03/16/17 18:00 03/22/17 14:00 Metoprolol Tartrate (Lopressor) 100 mg Q12HR PO 03/17/17 21:00 03/22/17 09:15 Docusate Sodium (Colace) 100 mg BID PO 03/19/17 21:00 03/22/17 09:15 Vancomycin HCl 1500 mg/Sodium Chloride 515 ml @ 250 mls/hr Q24H IV 03/20/17 18:00 03/21/17 18:15 Other Results Last 72 hours Impressions Chest X-Ray 03/22/17 0000 Signed Impressions: Service Date/Time: Wednesday, March 22, 2017 15:00 - CONCLUSION: 1. Small pleural effusions with patchy opacity the lung bases which may represent infiltrate. 2. Mild cardiomegaly. Chance Leon MD Laboratory Tests Test 03/22/17 08:13 Prothromb Time International Ratio 1.6 RATIO Prothrombin Time 18.5 SEC (9.8-11.6) Laboratory Tests Test 03/21/17 08:59 White Blood Count 7.9 TH/MM3 Red Blood Count 3.35 MIL/MM3 Hemoglobin 11.5 GM/DL Hematocrit 34.0 % Mean Corpuscular Volume 101.6 FL Mean Corpuscular Hemoglobin 34.5 PG Mean Corpuscular Hemoglobin Concent 33.9 % Red Cell Distribution Width 13.1 % Platelet Count 195 TH/MM3 Mean Platelet Volume 8.6 FL Neutrophils (%) (Auto) 71.0 % Lymphocytes (%) (Auto) 7.3 % Monocytes (%) (Auto) 15.3 % Eosinophils (%) (Auto) 5.6 % Basophils (%) (Auto) 0.8 % Neutrophils # (Auto) 5.6 TH/MM3 Lymphocytes # (Auto) 0.6 TH/MM3 Monocytes # (Auto) 1.2 TH/MM3 Eosinophils # (Auto) 0.4 TH/MM3 Basophils # (Auto) 0.1 TH/MM3 CBC Comment DIFF FINAL Differential Comment Laboratory Tests Test 03/21/17 08:59 Blood Urea Nitrogen 9 MG/DL Creatinine 0.56 MG/DL Random Glucose 92 MG/DL Calcium Level 8.1 MG/DL Sodium Level 134 MEQ/L Potassium Level 3.7 MEQ/L Chloride Level 101 MEQ/L Carbon Dioxide Level 26.7 MEQ/L Anion Gap 6 MEQ/L Estimat Glomerular Filtration Rate 141 ML/MIN Microbiology Date/Time Source Procedure Growth Status 03/20/17 20:15 Abscess Foot Gram Stain - Final Complete 03/20/17 20:15 Wound Culture - Final S. Aureus Mrsa Complete RADIOLOGY CONSULTATION REPORT - Continued Ordered By: Nadreina Maria C PETER MR#: [id number] : 1935 Attended By: Simone Gomez MD Loc: N04B Age: 81 Copy To: Hamlet Ríos MD Pt Name: MIGNON ALEJO MD Bed: 1428-A Order #: [id number] Page 2 of 2 Signed Report #:[id number] Doctor Entered in [facility] DEPARTMENT OF RADIOLOGY [address] [place], [place] [id number] [address] [place] [id number] [address] [place] [address] RADIOLOGY CONSULTATION REPORT Ordered By: Andreina PETER MR#: [id number] : 1935 Attended By: Simone Gomez MD Loc: N04B Age: 81 Copy To: Hamlet Ríos MD Bed: 1428A Hamlet Ríos MD Order #: [id number] Page 1 of 2 Signed Report #:[id number] Doctor Entered in [facility] MIGNON ALEJO Signed EXAM DATE/TIME: 03/19/2017 19:26 [place] COMPARISON: No previous studies available for comparison. INDICATIONS : Redness and swelling left foot possible abscess. IV CONTRAST: 68 cc Omnipaque 350 (iohexol) IV RADIATION DOSE: 21.9 CTDIvol (mGy) MEDICAL HISTORY : Parkinson's. Afib, SURGICAL HISTORY : None. ENCOUNTER: Initial ACUITY: 1 day PAIN SCALE: 7/10 LOCATION: Left Foot TECHNIQUE: Volumetric scanning of the foot was performed. Using automated exposure control and adjustment of the mA and/or kV according to patient size, radiation dose was kept as low as reasonably achievable to obtain optimal diagnostic quality images. DICOM format image data is available electronically for review and comparison. FINDINGS: BONES: No evidence of fracture. Alignment is within normal limits. JOINTS: Mild arthritic changes. SOFT TISSUES: There is extensive phlegmonous low density in the soft tissues dorsal to the first metatarsal and proximal great toe, likely complex abscess fluid. Extensive cellulitic change is present elsewhere throughout the visualized foot and ankle. CONCLUSION: Phlegmonous change or complex abscess dorsal to the first metatarsophalangeal joint and adjacent structures. Mignon Agudelo MD on March 19, 2017 at 23:08 Board Certified Radiologist. This report was verified electronically. Physical Exam General appearance: comfortable Peripheral pulses: Pulse exam of foot: Performed Left dorsalis pedis: normal Right dorsalis pedis: normal Edema: Left lower extremity: 3+, pitting Feet - visual inspection: Ulcerations: toe (1st MPJ fissure open draining redness of entore dorsal of the foot not involving ankle, no gas no ischemia) Left lower extremity: Left lower extremity: FINDINGS: normal Range of motion: normal Muscle strength/tone: FINDINGS: normal Assessment & Plan Diagnosis: (1) Abscess of left foot including toes ICD Codes: L02.612 - Cutaneous abscess of left foot (2) Cellulitis of left foot ICD Codes: L03.116 - Cellulitis of left lower limb Status: Acute A/P INR is ok for surgery, MRSA confirmed, Incision drainage planned, risks and benefits reviewed, may need more surgery at a later date, and will likely need minimum of 2-4 IV ABX. NPO and consent signed. Bright Velázquez DPM Mar 22, 2017 17:45
--- NOTE | 2017-03-22 17:46 | PD.POD ---
Subjective Pain score: 2 Remarks foot feels like it is improving seen bedside with and daughter Past Med/Surg/Social History Social History Smoking Status: Former Smoker Objective Vital Signs Vital Signs Date Time Temp Pulse Resp B/P (MAP) Pulse Ox O2 Delivery O2 Flow Rate FiO2 03/22/17 12:00 97.8 94 18 118/75 (89) 92 03/22/17 11:00 94 Room Air 03/22/17 09:00 74 03/22/17 08:00 97.8 75 18 105/59 (74) 92 03/22/17 05:18 97.9 78 18 118/60 (79) 99 03/22/17 00:19 97.8 72 18 111/72 (85) 99 03/21/17 21:26 98.3 75 17 160/78 (105) 100 03/21/17 20:00 Room Air Coded Allergies: No Known Allergies (Verified , 03/14/17) Medications and IVs Administered Medications Medications (Trade) Dose Ordered Sig/Vita Route PRN Reason Start Time Stop Time Status Last Admin Dose Admin Atorvastatin Calcium (Lipitor) 80 mg HS PO 03/14/17 21:00 03/21/17 20:05 Carbidopa/Levodopa (Sinemet 25-100 Mg) 1 tab 0600,1000,1400,1800 PO 03/14/17 18:00 03/22/17 14:41 Warfarin Sodium (Coumadin) 5 mg Mo@1600 PO 03/17/17 16:00 Future Hold 03/17/17 15:11 Warfarin Sodium (Coumadin) 2.5 mg SuTuWeThFrSa@1600 PO 03/14/17 18:00 Future Hold 03/16/17 17:12 Pantoprazole Sodium (Protonix) 20 mg DAILY@0600 PO 03/15/17 06:00 03/22/17 06:37 Temazepam (Restoril) 15 mg HS PRN PO insomnia 03/14/17 17:30 03/20/17 23:22 Acetaminophen/ Hydrocodone Bitart ([place] 10-325 Mg) 1 tab Q4H PRN PO pain 4-10 03/16/17 07:45 03/22/17 14:43 Patient Own Medication POM:(Entacapone 200 MG) TABLET PO 0600,1000,1400,1800 0600,1000,1400,1800 PO 03/16/17 18:00 03/22/17 14:00 Metoprolol Tartrate (Lopressor) 100 mg Q12HR PO 03/17/17 21:00 03/22/17 09:15 Docusate Sodium (Colace) 100 mg BID PO 03/19/17 21:00 03/22/17 09:15 Vancomycin HCl 1500 mg/Sodium Chloride 515 ml @ 250 mls/hr Q24H IV 03/20/17 18:00 03/21/17 18:15 Other Results Last 72 hours Impressions Chest X-Ray 03/22/17 0000 Signed Impressions: Service Date/Time: Wednesday, March 22, 2017 15:00 - CONCLUSION: 1. Small pleural effusions with patchy opacity the lung bases which may represent infiltrate. 2. Mild cardiomegaly. Chance Leon MD Laboratory Tests Test 03/22/17 08:13 Prothromb Time International Ratio 1.6 RATIO Prothrombin Time 18.5 SEC (9.8-11.6) Laboratory Tests Test 03/21/17 08:59 White Blood Count 7.9 TH/MM3 Red Blood Count 3.35 MIL/MM3 Hemoglobin 11.5 GM/DL Hematocrit 34.0 % Mean Corpuscular Volume 101.6 FL Mean Corpuscular Hemoglobin 34.5 PG Mean Corpuscular Hemoglobin Concent 33.9 % Red Cell Distribution Width 13.1 % Platelet Count 195 TH/MM3 Mean Platelet Volume 8.6 FL Neutrophils (%) (Auto) 71.0 % Lymphocytes (%) (Auto) 7.3 % Monocytes (%) (Auto) 15.3 % Eosinophils (%) (Auto) 5.6 % Basophils (%) (Auto) 0.8 % Neutrophils # (Auto) 5.6 TH/MM3 Lymphocytes # (Auto) 0.6 TH/MM3 Monocytes # (Auto) 1.2 TH/MM3 Eosinophils # (Auto) 0.4 TH/MM3 Basophils # (Auto) 0.1 TH/MM3 CBC Comment DIFF FINAL Differential Comment Laboratory Tests Test 03/21/17 08:59 Blood Urea Nitrogen 9 MG/DL Creatinine 0.56 MG/DL Random Glucose 92 MG/DL Calcium Level 8.1 MG/DL Sodium Level 134 MEQ/L Potassium Level 3.7 MEQ/L Chloride Level 101 MEQ/L Carbon Dioxide Level 26.7 MEQ/L Anion Gap 6 MEQ/L Estimat Glomerular Filtration Rate 141 ML/MIN Microbiology Date/Time Source Procedure Growth Status 03/20/17 20:15 Abscess Foot Gram Stain - Final Complete 03/20/17 20:15 Wound Culture - Final S. Aureus Mrsa Complete RADIOLOGY CONSULTATION REPORT - Continued Ordered By: Andreina Maria C PETER MR#: [id number] : 1935 Attended By: Simone Gomez MD Loc: N04B Age: 81 Copy To: Hamlet Ríos MD Pt Name: MIGNON ALEJO MD Bed: 1428-A Order #: [id number] Page 2 of 2 Signed Report #:[id number] Doctor Entered in [facility] DEPARTMENT OF RADIOLOGY [address] [place], [place] [id number] [address] [place] [id number] [place] [address] RADIOLOGY CONSULTATION REPORT Ordered By: Andreina PETER MR#: [id number] : 1935 Attended By: Simone Gomez MD Loc: N04B Age: 81 Copy To: Hamlet Ríos MD Bed: 1428A Hamlet Ríos MD Order #: [id number] Page 1 of 2 Signed Report #:[id number] Doctor Entered in [facility] MIGNON ALEJO Signed EXAM DATE/TIME: 03/19/2017 19:26 [place] COMPARISON: No previous studies available for comparison. INDICATIONS : Redness and swelling left foot possible abscess. IV CONTRAST: 68 cc Omnipaque 350 (iohexol) IV RADIATION DOSE: 21.9 CTDIvol (mGy) MEDICAL HISTORY : Parkinson's. Afib, SURGICAL HISTORY : None. ENCOUNTER: Initial ACUITY: 1 day PAIN SCALE: 7/10 LOCATION: Left Foot TECHNIQUE: Volumetric scanning of the foot was performed. Using automated exposure control and adjustment of the mA and/or kV according to patient size, radiation dose was kept as low as reasonably achievable to obtain optimal diagnostic quality images. DICOM format image data is available electronically for review and comparison. FINDINGS: BONES: No evidence of fracture. Alignment is within normal limits. JOINTS: Mild arthritic changes. SOFT TISSUES: There is extensive phlegmonous low density in the soft tissues dorsal to the first metatarsal and proximal great toe, likely complex abscess fluid. Extensive cellulitic change is present elsewhere throughout the visualized foot and ankle. CONCLUSION: Phlegmonous change or complex abscess dorsal to the first metatarsophalangeal joint and adjacent structures. Mignon Agudelo MD on March 19, 2017 at 23:08 Board Certified Radiologist. This report was verified electronically. Physical Exam General appearance: comfortable Peripheral pulses: Pulse exam of foot: Performed Left dorsalis pedis: normal Right dorsalis pedis: normal Edema: Left lower extremity: 3+, pitting Feet - visual inspection: Ulcerations: toe (1st MPJ fissure open draining redness of entore dorsal of the foot not involving ankle, no gas no ischemia) Left lower extremity: Left lower extremity: FINDINGS: normal Range of motion: normal Muscle strength/tone: FINDINGS: normal Assessment & Plan Diagnosis: (1) Abscess of left foot including toes ICD Codes: L02.612 - Cutaneous abscess of left foot (2) Cellulitis of left foot ICD Codes: L03.116 - Cellulitis of left lower limb Status: Acute A/P INR is ok for surgery, MRSA confirmed, Incision drainage planned, risks and benefits reviewed, may need more surgery at a later date, and will likely need minimum of 2-4 IV ABX. NPO and consent signed. Bright Velázquez DPM Mar 22, 2017 17:45
[2017-03-22] MEDS: VANCOMYCIN INJ 1,500 MG in SODIUM CHLORID 0.9% 500 ML INJ 500 ML IV SCH (18:07)
[2017-03-22] MEDS: TEMAZEPAM 15 MG CAP PO PRN (22:22)
[2017-03-22] MEDS: ATORVASTATIN 80 MG TAB PO SCH (22:23)
[2017-03-23] VITALS (7 sets, daily range): BP systolic 99–129; BP diastolic 58–66; PULSE 63–108; RESP 18–20; TEMP 97.4–97.8; O2SAT 94–97
[2017-03-23] MEDS ORDERED: POVIDONE IODINE 5% (ANTISEPSIS KIT) 4 APPLICATIONS EACH NARE PRN (01:45)
[2017-03-23] MEDS ORDERED: SODIUM CHLORID 0.9% 500 ML IV PRN (01:45)
[2017-03-23] MEDS ORDERED: INSULIN HUMAN REGULAR 1,000 UNITS/10 ML VIAL SQ PRN (01:45)
[2017-03-23] MEDS ORDERED: LACTATED RINGER'S 1000 ML IV PRN (01:45)
[2017-03-23] MEDS ORDERED: CHLORHEXIDINE GLUCONATE 2 % 1 PACK (2 CLOTHS) TOPICAL PRN (01:45)
[2017-03-23] MEDS: ACETAMINOPHEN/HYDROcodone 325 MG/10 MG TAB PO PRN ×4 (05:35→20:55)
[2017-03-23] MEDS: CARBIDOPA/LEVODOPA 25 MG/100 MG TAB PO SCH ×4 (05:35→17:17)
[2017-03-23] MEDS: PANTOPRAZOLE SOD 20 MG DELAYED RELEASE TAB PO SCH (05:35)
[2017-03-23] MEDS: ENTACAPONE 200 MG PO SCH ×4 (05:51→17:17)
[2017-03-23] MEDS ORDERED: BUPIVACAINE HCL PF 0.25% 30 ML VIAL ONE (06:56)
[2017-03-23] MEDS: METOPROLOL TARTRATE 100 MG TAB PO SCH ×2 (07:53→20:55)
[2017-03-23] MEDS: DOCUSATE SODIUM 100 MG CAP PO SCH ×2 (07:54→20:55)
[2017-03-23] MEDS ORDERED: DO NOT ADM ANY ANTICOAGULANT DRUGS PRN (08:48)
--- NOTE | 2017-03-23 09:02 | HHI.PR ---
Immediate Post Op Note Procedure Date: Mar 23, 2017 Pre Op Diagnosis: (1) Abscess of left foot including toes (2) Cellulitis of left foot Post Op Diagnosis: (1) Cellulitis of left foot (2) Abscess of left foot including toes Surgeon: Bright Flores [employer] Engineer(s): scrub Procedure: Incision drainage debridement left foot Findings: 1st interspace abscess Additional Information: Will await further clinical improvement before DC, recommend IV ABX until redness resolved. Complications: None Specimen(s) removed: Deep wound cx Estimated blood loss: 30mL Anesthesia: MAC, Local Drains: Other Fluids: 500 ml LR Tourniquet time (min at mmHg) none Patient to: PACU Patient Condition: Fair Implant/Devices: SEE IMPLANT LOG (if applicable) Date/Time of Procedure: SEE SURGICAL CARE RECORD Bright FloresM Mar 23, 2017 09:02
--- NOTE | 2017-03-23 10:37 | MP ---
cc: MAGALI BLANC DPM DATE OF SURGERY: 03/23/2017 PREOPERATIVE DIAGNOSIS: Left foot abscess cellulitis. POSTOPERATIVE DIAGNOSIS: Left foot abscess cellulitis. PROCEDURE PERFORMED: Left foot incision and drainage, debridement, deep first interspace. SPECIMEN: Deep wound culture. COMPLICATIONS None ESTIMATED BLOOD LOSS Less than 30 mL ANESTHESIA Monitored anesthesia care with local, ankle block performed, 20 cc of 0.25% Marcaine plain. FLUIDS 500 mL LR TOURNIQUET None. PLAN OF ACTIVITY: PACU, then return to floor. Continue to monitor progress. JUSTIFICATION FOR PROCEDURE: The patient is a 81-year-old male who sustained a mild injury and then developed an abscess. This was confirmed by CT. Bedside incision and drainage took place, due to the patient's elevated INR. The patient has now somewhat normalized his INR deeming it safe and appropriate for surgical incision, drainage and debridement. PROCEDURE IN DETAIL Under mild sedation the patient was brought to the operating room, placed on the operating room table in the supine position. Following the induction of monitored anesthesia care, an ankle block was performed providing anesthesia distal. The patient's left foot was scrubbed, prepped and draped in the usual aseptic fashion. The foot was elevated and examined. A linear incision was made over the dorsal aspect of the first MPJ. Sharp and blunt dissection was carried down to the deep dermis and subcutaneous tissue just superficial to the joint capsule. The EHL was identified. At the first interspace there was noted to be a serosanguineous purulent hematoma which was evacuated. The wound was then flushed with 3 liters of normal saline. The wound was loosely coapted with nylon packing placed, bulky bandage placed. The patient transferred from OR to PACU with all vital signs stable. Deep culture was taken at the time of surgery. My recommendation is packing to be changed at minimum every other day and monitor the patient's clinical improvement, however, due to the impressive redness, I am recommending at least IV antibiotics until the patient's clinical signs of infection significantly improve. YESY Pulliam/PORSCHE /8:57 AM /10:19 AM
[2017-03-23] MEDS ORDERED: METOPROLOL TARTRATE 5 MG/5 ML VIAL IV PUSH ONE (12:00)
[2017-03-23] MEDS ORDERED: PROPOFOL 200 MG/20 ML AMP IV ONE (12:00)
[2017-03-23] MEDS ORDERED: PHENYLEPH/NS 1000 MCG/10 ML SYR IV ONE (12:00)
--- NOTE | 2017-03-23 12:07 | HHI.PR ---
Subjective Remarks Pt denies chest pain, palpitations, or SOB. Objective Vitals Vital Signs Date Time Temp Pulse Resp B/P (MAP) Pulse Ox O2 Delivery O2 Flow Rate FiO2 03/23/17 09:15 73 15 119/60 (79) 99 Room Air 03/23/17 09:00 69 16 121/60 (80) 100 Room Air 03/23/17 08:54 97.8 73 14 112/68 (83) 100 Simple Mask 6 Manual Cuff/Auscultation 03/23/17 08:00 97.6 82 18 118/66 (83) 96 03/23/17 08:00 95 Room Air 03/23/17 06:13 97.8 81 20 102/58 (73) 95 03/23/17 00:00 97.4 67 20 99/59 (72) 94 03/22/17 22:30 Room Air 03/22/17 20:00 71 03/22/17 20:00 97.6 89 20 116/65 (82) 95 03/22/17 16:00 97.7 77 18 112/63 (79) 94 03/22/17 12:00 97.8 94 18 118/75 (89) 92 03/23/17 03/23/17 03/24/17 15:00 23:00 07:00 Intake Total 500 ml Output Total 30 ml Balance 470 ml Other 500 ml Estimated Blood Loss 30 ml Result Diagram: 03/21/17 0859 03/21/17 0859 Imaging Last Impressions Foot X-Ray 03/14/17 1438 Signed Impressions: Service Date/Time: Tuesday, March 14, 2017 14:53 - CONCLUSION: Diffuse soft tissue swelling. Simone Junior MD Chest X-Ray 03/14/17 1435 Signed Impressions: Service Date/Time: Tuesday, March 14, 2017 14:48 - CONCLUSION: Mild right lower lung infiltrate. Simone Junior MD Objective Remarks General: NAD, AAOx3 Chest: CTA Cardiac: Irregular Abd: +Bs, soft ND/NT Ext: lower ext dressing removed and purulent drainage expressed BUE and BLE 2+ pitting edema Procedures bedside I&D of Left foot abscess 03/20/[address] Garcia Left foot incision and drainage, debridement, deep first interspace with Dr. Bright Velázquez (03/23/17) A/P Problem List: (1) Cellulitis of left foot ICD Codes: L03.116 - Cellulitis of left lower limb Status: Acute Plan: - Pt is a 81 y/o male with atrial fibrillation on chronic anticoagulation with Coumadin, HTN, Hyperlipidemia, Parkinson's Disease who presents to the ED with complaints of left foot swelling, pain and erythema over the last few days. He had injured his foot around 1 week ago. - Xray in the ED with noted diffuse soft tissue swelling - Blood Cx (03/14/17) --> NG x 5 days - Vancomycin (03/14 - present), pharmacy to monitor vanco levels - WBC down to 10.5 (03/19) -> 7.9 (03/21) - Pt with noted significant LE edema which he reports has worsened over the last 6 months - Echocardiogram (03/14/17) --> EF 60-65%, b/l atrial enlargement - repeat CT left foot with contrast (03/20) reviewed and reveals phlegmonous change or complex abscess dorsal to the first metatarsophalangeal joint and adjacent structures - consult podiatry, case discussed with with Dr. aGrcia patient s/p bedside I& D (03/20) - Left foot incision and drainage, debridement, deep first interspace with Dr. Bright Velázquez (03/23/17) - Intraoperative deep cultures are pending - wound cultured 03/20 during I&D reveals MRSA, continue Vancomycin with pharmacy to dose - supportive care - DVT prophylaxis with Coumadin (held for supra-therapeutic INR (03/17/17) (03/20) INR 5.0, no active signs of bleeding continue to hold Coumadin and give vit K 5 mg now (03/21) INR 3.0, continue to hold Coumadin give additional Vit K 5 mg today and recheck in AM (03/22) INR 1.6, continue to hold Coumadin planned surgical intervention 03/23 - lovenox started 03/23, will resume coumadin once certain that pt will NOT need additional surgical procedure - PT has recommended SNF at the end of hospitalization. (2) Leg edema ICD Codes: R60.0 - Localized edema Plan: Lasix 40 mg IV x1 (03/22) - clinically improved - CXR (03/22) --> small b/l pleural effusions with patchy bibasilar infiltrates - repeat CXR (03/24) (3) Atrial fibrillation ICD Codes: I48.91 - Unspecified atrial fibrillation Status: Chronic Plan: - Metoprolol 100mg BID resumed and HR better controlled - BP still low but stable. - Coumadin stopped on 03/16 due to supra-therapeutic INR - Appreciate Cardiology Consultation - see above (4) HTN (hypertension) ICD Codes: I10 - Essential (primary) hypertension Status: Chronic Plan: - Hold on continuing Lisinopril - Cont. Metoprolol - Monitor (5) CAD (coronary artery disease) ICD Codes: I25.10 - Atherosclerotic heart disease of [place] coronary artery without angina pectoris Status: Chronic Plan: - BB, lipitor (6) Parkinson disease ICD Codes: G20 - Parkinson's disease Status: Chronic Plan: - continue sinemet (7) Alcohol use ICD Codes: Z78.9 - Other specified health status Status: Chronic Plan: - Pt drinks alcohol daily but denies any hx of withdrawal but has tremors related to his Parkinson's - Ativan PRN - Alcohol withdrawal precautions Problem Qualifiers (1) Atrial fibrillation: Qualified Codes: I48.2 - Chronic atrial fibrillation (2) CAD (coronary artery disease): Qualified Codes: I25.10 - Atherosclerotic heart disease of [place] coronary artery without angina pectoris Francis Argueta DO Mar 23, 2017 12:07
[2017-03-23] MEDS ORDERED: POTASSIUM CHLORIDE 20 MEQ CONTROLLED RELEASE TAB PO ONE (12:45)
[2017-03-23] MEDS ORDERED: FUROSEMIDE 40 MG/4 ML VIAL IV PUSH ONE (12:45)
[2017-03-23] MEDS: ENOXAPARIN SODIUM 100 MG/ML SYRINGE SQ SCH ×2 (13:25→23:07)
[2017-03-23 16:14] LABS: INTERNATIONAL NORMALIZED RATIO 1.4 RATIO; PROTHROMBIN TIME - PATIENT 15.6 SEC (9.8-11.6)
[2017-03-23 16:16] LABS: BICARBONATE 32.7 MEQ/L (21.0-32.0); CALCIUM 7.6 MG/DL (8.5-10.1); CREATININE 0.71 MG/DL (0.60-1.30); MAGNESIUM 1.9 MG/DL (1.5-2.5)
[2017-03-23] MEDS: VANCOMYCIN INJ 1,500 MG in SODIUM CHLORID 0.9% 500 ML INJ 500 ML IV SCH (17:16)
[2017-03-23] MEDS ORDERED: PHARMACY ORDERED LAB ONE (17:45)
[2017-03-23] MEDS: ATORVASTATIN 80 MG TAB PO SCH (20:55)
[2017-03-23] MEDS: TEMAZEPAM 15 MG CAP PO PRN (23:07)
[2017-03-24] VITALS (7 sets, daily range): BP systolic 98–135; BP diastolic 55–95; PULSE 73–112; RESP 16–20; TEMP 97.4–99.1; O2SAT 92–96
[2017-03-24] MEDS: ACETAMINOPHEN/HYDROcodone 325 MG/10 MG TAB PO PRN ×2 (03:58→18:52)
[2017-03-24] MEDS: CARBIDOPA/LEVODOPA 25 MG/100 MG TAB PO SCH ×4 (06:28→18:48)
[2017-03-24] MEDS: ENTACAPONE 200 MG PO SCH ×4 (06:29→18:00)
[2017-03-24] MEDS: PANTOPRAZOLE SOD 20 MG DELAYED RELEASE TAB PO SCH (06:29)
[2017-03-24 08:06] LABS: AUTOMATED NEUTROPHIL # 5.6 TH/MM3 (1.8-7.7); BASOPHIL # 0.1 TH/MM3 (0-0.2); BASOPHIL % 0.8 % (0.0-2.0); EOSINOPHIL # 0.5 TH/MM3 (0-0.4); EOSINOPHIL % 5.5 % (0.0-4.0); HEMATOCRIT 31.5 % (39.0-51.0); HEMOGLOBIN 10.7 GM/DL (13.0-17.0); LYMPH % 10.8 % (9.0-44.0); LYMPHOCYTE # 0.9 TH/MM3 (1.0-4.8); MEAN CELL VOLUME 101.2 FL (80.0-100.0); MEAN CORPUSCULAR HEMOGLOBIN 34.4 PG (27.0-34.0); MEAN PLATELET VOLUME 9.3 FL (7.0-11.0); MONO % 15.7 % (0.0-8.0); MONOCYTE # 1.3 TH/MM3 (0-0.9); NEUT % 67.2 % (16.0-70.0); PLATELET COUNT 167 TH/MM3 (150-450); RED BLOOD COUNT 3.11 MIL/MM3 (4.50-5.90); RED CELL DISTRIBUTION WIDTH 13.2 % (11.6-17.2); WHITE BLOOD COUNT 8.4 TH/MM3 (4.0-11.0)
[2017-03-24 08:13] LABS: INTERNATIONAL NORMALIZED RATIO 1.4 RATIO; PROTHROMBIN TIME - PATIENT 15.9 SEC (9.8-11.6)
[2017-03-24 08:32] LABS: BICARBONATE 31.8 MEQ/L (21.0-32.0); CALCIUM 7.9 MG/DL (8.5-10.1); CREATININE 0.61 MG/DL (0.60-1.30)
[2017-03-24 08:36] LABS: CHOLESTEROL/ HDL RATIO 2.22 RATIO; HDL CHOLESTEROL 25.6 MG/DL (40.0-60.0)
[2017-03-24] MEDS: DOCUSATE SODIUM 100 MG CAP PO SCH ×2 (09:32→20:41)
--- NOTE | 2017-03-24 10:05 | HHI.PR ---
Subjective Remarks doing ok. no new complaints Objective Vitals heart irreg lung cta abd s/nt ext left foot bandaged. Vital Signs Date Time Temp Pulse Resp B/P (MAP) Pulse Ox O2 Delivery O2 Flow Rate FiO2 03/24/17 04:00 97.4 73 18 98/55 (69) 92 03/24/17 00:00 97.8 82 18 135/84 (101) 95 03/23/17 22:00 Room Air 03/23/17 20:00 97.7 108 20 125/63 (83) 95 03/23/17 20:00 71 03/23/17 16:00 97.7 73 18 122/64 (83) 97 03/23/17 12:00 97.7 84 18 100/60 (73) 94 Result Diagram: 03/24/1770103/24/17701 Imaging Last Impressions Foot X-Ray 03/14/17 1438 Signed Impressions: Service Date/Time: Tuesday, March 14, 2017 14:53 - CONCLUSION: Diffuse soft tissue swelling. Simone Junior MD Chest X-Ray 03/14/17 1435 Signed Impressions: Service Date/Time: Tuesday, March 14, 2017 14:48 - CONCLUSION: Mild right lower lung infiltrate. Simone Junior MD Procedures bedside I&D of Left foot abscess 03/20/[address] Garcia Left foot incision and drainage, debridement, deep first interspace with Dr. Bright Velázquez (03/23/17) A/P Problem List: (1) Cellulitis of left foot ICD Codes: L03.116 - Cellulitis of left lower limb Status: Acute Plan: - Pt is a 81 y/o male with atrial fibrillation on chronic anticoagulation with Coumadin, HTN, Hyperlipidemia, Parkinson's Disease who presents to the ED with complaints of left foot swelling, pain and erythema over the last few days. He had injured his foot around 1 week ago. - Xray in the ED with noted diffuse soft tissue swelling - Blood Cx (03/14/17) --> NG x 5 days - Vancomycin (03/14 - present), pharmacy to monitor vanco levels - WBC down to 10.5 (03/19) -> 7.9 (03/21) - Pt with noted significant LE edema which he reports has worsened over the last 6 months - Echocardiogram (03/14/17) --> EF 60-65%, b/l atrial enlargement - repeat CT left foot with contrast (03/20) reviewed and reveals phlegmonous change or complex abscess dorsal to the first metatarsophalangeal joint and adjacent structures - consult podiatry, case discussed with with Dr. Garcia patient s/p bedside I& D (03/20) - Left foot incision and drainage, debridement, deep first interspace with Dr. Bright Velázquez (03/23/17) - Intraoperative deep cultures are pending - wound cultured 03/20 during I&D reveals MRSA, - supportive care - DVT prophylaxis with Coumadin (held for supra-therapeutic INR (03/17/17) (03/20) INR 5.0, no active signs of bleeding continue to hold Coumadin and give vit K 5 mg (03/21) INR 3.0, continue to hold Coumadin give additional Vit K 5 mg (03/22) INR 1.6, continue to hold Coumadin planned surgical intervention 03/23 - lovenox started 03/23, will resume coumadin once certain that pt will NOT need additional surgical procedure - PT has recommended SNF at the end of hospitalization. will look at wound with podiatry today. apparently still alot of erythema yesterday. will convert vanco to clinda with better BING for mrsa. (2) Leg edema ICD Codes: R60.0 - Localized edema Status: Chronic Plan: Lasix 40 mg IV x1 (03/22) - clinically improved - CXR (03/22) --> small b/l pleural effusions with patchy bibasilar infiltrates (3) Atrial fibrillation ICD Codes: I48.91 - Unspecified atrial fibrillation Status: Chronic Plan: - Metoprolol 100mg BID resumed and HR better controlled - BP still low but stable. - Coumadin stopped on 03/16 due to supra-therapeutic INR - Appreciate Cardiology Consultation - see above (4) HTN (hypertension) ICD Codes: I10 - Essential (primary) hypertension Status: Chronic Plan: - Hold on continuing Lisinopril - Cont. Metoprolol - Monitor (5) CAD (coronary artery disease) ICD Codes: I25.10 - Atherosclerotic heart disease of [place] coronary artery without angina pectoris Status: Chronic Plan: - BB, lipitor (6) Parkinson disease ICD Codes: G20 - Parkinson's disease Status: Chronic Plan: - continue sinemet (7) Alcohol use ICD Codes: Z78.9 - Other specified health status Status: Chronic Plan: - Pt drinks alcohol daily but denies any hx of withdrawal but has tremors related to his Parkinson's - Ativan PRN - Alcohol withdrawal precautions Problem Qualifiers (1) Atrial fibrillation: Qualified Codes: I48.2 - Chronic atrial fibrillation (2) CAD (coronary artery disease): Qualified Codes: I25.10 - Atherosclerotic heart disease of [place] coronary artery without angina pectoris Simone Gomez MD Mar 24, 2017 10:05
[2017-03-24] MEDS: METOPROLOL TARTRATE 100 MG TAB PO SCH ×2 (10:16→20:42)
[2017-03-24] MEDS: CLINDAMYCIN INJ 900 MG in SODIUM CHLORIDE 0.9% INJ 100 ML IV SCH ×2 (11:43→18:48)
[2017-03-24] MEDS: ENOXAPARIN SODIUM 100 MG/ML SYRINGE SQ SCH ×2 (13:34→23:28)
[2017-03-24 16:43] LABS: HEMOGLOBIN A1C 5.4 % (4.3-6.0)
--- NOTE | 2017-03-24 16:54 | PD.POD ---
Subjective Podiatric Problems s/p Left foot I&D with on 03/23/19. Pt states that he is feeling better and not having any pain to the foot. He denies any n/v/f/h/c/sob. Pain score: 2 Past Med/Surg/Social History Social History Smoking Status: Former Smoker Objective Vital Signs Vital Signs Date Time Temp Pulse Resp B/P (MAP) Pulse Ox O2 Delivery O2 Flow Rate FiO2 03/24/17 12:00 97.5 78 20 109/95 (100) 95 03/24/17 08:24 106 03/24/17 08:00 Room Air 03/24/17 08:00 97.5 112 20 99/56 (70) 93 03/24/17 04:00 97.4 73 18 98/55 (69) 92 03/24/17 00:00 97.8 82 18 135/84 (101) 95 03/23/17 22:00 Room Air 03/23/17 20:00 97.7 108 20 125/63 (83) 95 03/23/17 20:00 71 Coded Allergies: No Known Allergies (Verified , 03/14/17) Exam-Podiatry Remarks Derm: mild serosanguineous drainage with pressure around packing sites, neha incision erythema, exposed extensor tendon at most distal aspect, incision site is loosely sutured and sutures are intact, no malodor Bio, Neuro, and Derm: unchanged from original consult Assessment & Plan A/P 1)b s/p left foot I&D, 03/23, - to change dressing tomorrow to determine efficacy of clinda -ok for d/c to SNF once cleared from hospitalist standpoint -will need daily dressing changes with light packing, covered with 4x4s, and secured with brie and a light SOTO wrap -elevate while at rest -wear surgical shoe and use walker when WBing -f/u with in 5-7 days -discussed with , and BRITTANI Johnson, in detail Jenna Reddy DPM Mar 24, 2017 16:53
[2017-03-24] MEDS ORDERED: PHARMACY ORDERED LAB-VANCO TROUGH ONE (17:45)
[2017-03-24] MEDS: ATORVASTATIN 80 MG TAB PO SCH (20:42)
[2017-03-24] MEDS: TEMAZEPAM 15 MG CAP PO PRN (23:28)
[2017-03-25] VITALS (8 sets, daily range): BP systolic 101–120; BP diastolic 56–66; PULSE 69–125; RESP 16–20; TEMP 97.3–98; O2SAT 94–96
[2017-03-25] MEDS: CLINDAMYCIN INJ 900 MG in SODIUM CHLORIDE 0.9% INJ 100 ML IV SCH ×3 (03:34→19:36)
[2017-03-25] MEDS: ENTACAPONE 200 MG PO SCH ×4 (04:48→17:35)
[2017-03-25] MEDS: CARBIDOPA/LEVODOPA 25 MG/100 MG TAB PO SCH ×4 (04:49→17:34)
[2017-03-25] MEDS: PANTOPRAZOLE SOD 20 MG DELAYED RELEASE TAB PO SCH (04:49)
[2017-03-25 08:11] LABS: CREATININE 0.57 MG/DL (0.60-1.30)
[2017-03-25] MEDS: METOPROLOL TARTRATE 100 MG TAB PO SCH ×2 (08:45→21:27)
[2017-03-25] MEDS: DOCUSATE SODIUM 100 MG CAP PO SCH ×2 (08:46→21:00)
[2017-03-25] MEDS ORDERED: HYDROCHLOROTHIAZIDE 25 MG TAB PO SCH (09:00)
[2017-03-25] MEDS: ACETAMINOPHEN/HYDROcodone 325 MG/10 MG TAB PO PRN ×4 (09:15→22:25)
--- NOTE | 2017-03-25 09:27 | HHI.PR ---
Subjective Remarks no new complaints Objective Vitals heart reg lung cta abd s/nt ext left great toe..dorsal incision. packed steristrips...redness markedly improved on toe. no redness of foot or leg. Vital Signs Date Time Temp Pulse Resp B/P (MAP) Pulse Ox O2 Delivery O2 Flow Rate FiO2 03/25/17 08:00 98.0 125 18 104/66 (79) 96 03/25/17 04:00 Room Air 03/25/17 04:00 97.6 69 16 108/59 (75) 94 03/25/17 00:00 97.5 69 16 110/65 (80) 95 03/25/17 00:00 Room Air 03/24/17 20:00 Room Air 03/24/17 20:00 82 03/24/17 20:00 98.8 85 16 110/70 (83) 95 03/24/17 16:00 99.1 112 20 123/68 (86) 96 03/24/17 12:00 97.5 78 20 109/95 (100) 95 Result Diagram: 03/24/17 0702 03/25/17 0727 Imaging Last Impressions Foot X-Ray 03/14/17 1438 Signed Impressions: Service Date/Time: Tuesday, March 14, 2017 14:53 - CONCLUSION: Diffuse soft tissue swelling. Simone Junior MD Chest X-Ray 03/14/17 1435 Signed Impressions: Service Date/Time: Tuesday, March 14, 2017 14:48 - CONCLUSION: Mild right lower lung infiltrate. Simone Junior MD Procedures bedside I&D of Left foot abscess 03/20/[address] Garcia Left foot incision and drainage, debridement, deep first interspace with Dr. Bright Velázquez (03/23/17) A/P Problem List: (1) Cellulitis of left foot ICD Codes: L03.116 - Cellulitis of left lower limb Status: Acute Plan: - Pt is a 81 y/o male with atrial fibrillation on chronic anticoagulation with Coumadin, HTN, Hyperlipidemia, Parkinson's Disease who presents to the ED with complaints of left foot swelling, pain and erythema over the last few days. He had injured his foot around 1 week ago. - Xray in the ED with noted diffuse soft tissue swelling - Blood Cx (03/14/17) --> NG x 5 days - Vancomycin (03/14 - present), pharmacy to monitor vanco levels - WBC down to 10.5 (03/19) -> 7.9 (03/21) - Pt with noted significant LE edema which he reports has worsened over the last 6 months - Echocardiogram (03/14/17) --> EF 60-65%, b/l atrial enlargement - repeat CT left foot with contrast (03/20) reviewed and reveals phlegmonous change or complex abscess dorsal to the first metatarsophalangeal joint and adjacent structures - consult podiatry, case discussed with with Dr. Garcia patient s/p bedside I& D (03/20) - Left foot incision and drainage, debridement, deep first interspace with Dr. Bright Velázquez (03/23/17) - Intraoperative deep cultures mrsa - wound cultured 03/20 during I&D reveals MRSA, - supportive care - DVT prophylaxis with Coumadin (held for supra-therapeutic INR (03/17/17) (03/20) INR 5.0, no active signs of bleeding continue to hold Coumadin and give vit K 5 mg (03/21) INR 3.0, continue to hold Coumadin give additional Vit K 5 mg (03/22) INR 1.6, continue to hold Coumadin planned surgical intervention 03/23 - lovenox started 03/23, - PT has recommended SNF at the end of hospitalization. I looked at the surgical site 03/24 and today. The redness is markedly improved after changing abx from vanco to clinda Pt to be evaluated by PT today after surgical shoe placed. discussed with PT to [facility] as pt/ still deciding on hhc/pt vs snf...plan for d/c tomorrow. d/c lovenox and resume coumadin. (2) Leg edema ICD Codes: R60.0 - Localized edema Status: Chronic Plan: Lasix 40 mg IV x1 (03/22) - clinically improved - CXR (03/22) --> small b/l pleural effusions with patchy bibasilar infiltrates (3) Atrial fibrillation ICD Codes: I48.91 - Unspecified atrial fibrillation Status: Chronic Plan: - Metoprolol 100mg BID resumed and HR better controlled - BP still low but stable. - Coumadin stopped on 03/16 due to supra-therapeutic INR - Appreciate Cardiology Consultation - see above (4) HTN (hypertension) ICD Codes: I10 - Essential (primary) hypertension Status: Chronic Plan: - Hold on continuing Lisinopril - Cont. Metoprolol - Monitor (5) CAD (coronary artery disease) ICD Codes: I25.10 - Atherosclerotic heart disease of [place] coronary artery without angina pectoris Status: Chronic Plan: - BB, lipitor (6) Parkinson disease ICD Codes: G20 - Parkinson's disease Status: Chronic Plan: - continue sinemet (7) Alcohol use ICD Codes: Z78.9 - Other specified health status Status: Chronic Plan: - Pt drinks alcohol daily but denies any hx of withdrawal but has tremors related to his Parkinson's - Ativan PRN - Alcohol withdrawal precautions Problem Qualifiers (1) Atrial fibrillation: Qualified Codes: I48.2 - Chronic atrial fibrillation (2) CAD (coronary artery disease): Qualified Codes: I25.10 - Atherosclerotic heart disease of [place] coronary artery without angina pectoris Simone Gomez MD Mar 25, 2017 09:27
[2017-03-25] MEDS ORDERED: WARFARIN SOD 5 MG TAB PO SCH (16:00)
[2017-03-25] MEDS: ATORVASTATIN 80 MG TAB PO SCH (21:27)
[2017-03-25] MEDS: TEMAZEPAM 15 MG CAP PO PRN (23:41)
[2017-03-26] VITALS: BP 109/66; PULSE 67; RESP 16; TEMP 97.6; O2SAT 93
[2017-03-26] MEDS: CLINDAMYCIN INJ 900 MG in SODIUM CHLORIDE 0.9% INJ 100 ML IV SCH ×2 (03:16→11:03)
[2017-03-26 04:00] VITALS: BP 105/67; PULSE 78; RESP 16; TEMP 97.9; O2SAT 97
[2017-03-26] MEDS: CARBIDOPA/LEVODOPA 25 MG/100 MG TAB PO SCH ×2 (05:25→09:01)
[2017-03-26] MEDS: ACETAMINOPHEN/HYDROcodone 325 MG/10 MG TAB PO PRN ×2 (05:25→09:20)
[2017-03-26] MEDS: PANTOPRAZOLE SOD 20 MG DELAYED RELEASE TAB PO SCH (05:25)
[2017-03-26] MEDS: ENTACAPONE 200 MG PO SCH ×2 (05:26→09:01)
[2017-03-26 08:00] VITALS: BP 112/72; PULSE 102; RESP 18; TEMP 97.6; O2SAT 95
[2017-03-26] MEDS: DOCUSATE SODIUM 100 MG CAP PO SCH (08:10)
[2017-03-26] MEDS: METOPROLOL TARTRATE 100 MG TAB PO SCH (08:10)
[2017-03-26] MEDS ORDERED: CLIN300C5 PO ×2 (08:24→08:31)
[2017-03-26] MEDS ORDERED: ENOX40P SQ (08:24)
[2017-03-26] MEDS ORDERED: HYDR-3583 PO (08:25)
--- NOTE | 2017-03-26 09:23 | HHI.DS ---
Discharge Summary Admission Date Mar 14, 2017 at 16:37 Discharge Date: Mar 26, 2017 Admitting Diagnosis left foot cellulitis. Atrial fibrillation. (1) Foot abscess, left Diagnosis: Principal ICD Codes: L02.612 - Cutaneous abscess of left foot (2) Cellulitis of left foot Diagnosis: Principal ICD Codes: L03.116 - Cellulitis of left lower limb Status: Acute (3) Leg edema Diagnosis: Principal ICD Codes: R60.0 - Localized edema Status: Acute (4) Atrial fibrillation Diagnosis: Principal ICD Codes: I48.91 - Unspecified atrial fibrillation Status: Acute (5) HTN (hypertension) Diagnosis: Secondary ICD Codes: I10 - Essential (primary) hypertension Status: Chronic (6) CAD (coronary artery disease) Diagnosis: Secondary ICD Codes: I25.10 - Atherosclerotic heart disease of [place] coronary artery without angina pectoris Status: Chronic (7) Parkinson disease Diagnosis: Secondary ICD Codes: G20 - Parkinson's disease Status: Chronic (8) Alcohol use Diagnosis: Secondary ICD Codes: Z78.9 - Other specified health status Status: Chronic Procedures bedside I&D of Left foot abscess 03/20/[address] Garcia Left foot incision and drainage, debridement, deep first interspace with Dr. Bright Velázquez (03/23/17) Brief History Mr. Elizabeth is a pleasant 81 y/o WM with HTN, hyperlipidemia, Atrial fibrillation, Parkinson's Disease and daily alcohol use. [place] [facility] [place] with complaints of left foot swelling and erythema. Pt reports that he injured his foot about 1 week ago when he tripped and hyperflexed the right big toe. He states that he was bleeding for a short time at the base of the big toe after the initial injury. Patient states that he has increasing redness, swelling, and tenderness of the left foot over the last 2 days and the redness has increased up the left raygoza today. He denies any fevers or chills. He is noted to have significant edema of bilateral LE and reports increased LE edema over the last 6 months. Denies any palpitations, dizziness, chest pain, SOB. He had an Xray of the foot which noted diffuse soft tissue swelling in the left foot. His labs at admission noted an elevated WBC count of 14.0. He was given Vancomycin IV in the ED. Pts HR was elevated in the ED and had been planned to be given IV Cardizem but he converted back to rate controlled A. fib. Pt denies any known hx of CHF. His last Echo that was in the outpt records was in 2002 and noted EF 45%. CBC/BMP: 03/24/17 0702 03/25/17 0727 Significant Findings Laboratory Tests Test 03/23/17 15:33 03/24/17 07:02 03/25/17 07:27 Prothrombin Time 15.6 SEC (9.8-11.6) 15.9 SEC (9.8-11.6) Random Glucose 108 MG/DL (74-106) Calcium Level 7.6 MG/DL (8.5-10.1) 7.9 MG/DL (8.5-10.1) Carbon Dioxide Level 32.7 MEQ/L (21.0-32.0) Anion Gap 4 MEQ/L (5-15) 4 MEQ/L (5-15) Red Blood Count 3.11 MIL/MM3 (4.50-5.90) Hemoglobin 10.7 GM/DL (13.0-17.0) Hematocrit 31.5 % (39.0-51.0) Mean Corpuscular Volume 101.2 FL (80.0-100.0) Mean Corpuscular Hemoglobin 34.4 PG (27.0-34.0) Monocytes (%) (Auto) 15.7 % (0.0-8.0) Eosinophils (%) (Auto) 5.5 % (0.0-4.0) Lymphocytes # (Auto) 0.9 TH/MM3 (1.0-4.8) Monocytes # (Auto) 1.3 TH/MM3 (0-0.9) Eosinophils # (Auto) 0.5 TH/MM3 (0-0.4) Cholesterol Level 57 MG/DL (120-200) HDL Cholesterol 25.6 MG/DL (40.0-60.0) Creatinine 0.57 MG/DL (0.60-1.30) Hospital Course (1) Cellulitis of left foot - Pt is a 81 y/o male with atrial fibrillation on chronic anticoagulation with Coumadin, HTN, Hyperlipidemia, Parkinson's Disease who presents to the ED with complaints of left foot swelling, pain and erythema over the last few days. He had injured his foot around 1 week ago. - Xray in the ED with noted diffuse soft tissue swelling - Blood Cx (03/14/17) --> NG x 5 days - Vancomycin initiated. - Pt with noted significant LE edema which he reports has worsened over the last 6 months - Echocardiogram (03/14/17) --> EF 60-65%, b/l atrial enlargement - repeat CT left foot with contrast (03/20) reviewed and reveals phlegmonous change or complex abscess dorsal to the first metatarsophalangeal joint and adjacent structures - consult podiatry, case discussed with with Dr. Garcia patient s/p bedside I& D (03/20) - Left foot incision and drainage, debridement, deep first interspace with Dr. Bright Velázquez (03/23/17) - Intraoperative deep cultures mrsa - wound cultured 03/20 during I&D reveals MRSA, - coumadin was reversed prior to surgery and lovenox given after. now coumadin has been resumed. - pt was converted to clindamycin with better BING and the bright red cellulitis on toe/foot dramatically improved. will convert to po after my discussion with podiatry. will send to snf for further PT. walker and surgical boot ordered. wound care ordered. monitor coumadin at snf. f/u within 5 days podiatry. I looked at the surgical site 03/24 and today. The redness is markedly improved after changing abx from vanco to clinda Pt to be evaluated by PT today after surgical shoe placed. discussed with PT to eval as pt/ still deciding on hhc/pt vs snf...plan for d/c tomorrow. d/c lovenox and resume coumadin. Also of note the pt has a chronically low bp but he tolerates the high dose metoprolol. when the bb is lowered or held pt has problems with afib/rvr. cardiology evaluated. cont bb at currently dose. Pt Condition on Discharge: Stable Discharge Disposition: Discharge to SNF Discharge Instructions DIET: Follow Instructions for: Heart Healthy Diet Activities you can perform: Regular-No Restrictions New Medications: Clindamycin (Clindamycin) 300 Mg Cap 300 MG PO TID for Infection for 10 Days, #30 CAP 0 Refills Enoxaparin Inj (Lovenox Inj) 40 Mg/0.4 Ml Syr 40 MG SQ DAILY for Blood Clot Prevention for 5 Days, SYRINGE 0 Refills Hydrocodone-Acetaminophen (Hydrocodone-Acetaminophen) 10-325 mg Tab 1 TAB PO Q4H PRN for pain 4-10, #30 TAB Continued Medications: Atorvastatin (Atorvastatin) 80 Mg Tab 80 MG PO HS for Cholesterol Management, #30 TAB 0 Refills Carbidopa-Levodopa (Carbidopa-Levodopa) 25-100 Mg Tab 1 TAB PO QID for Parkinson Disease Mgmt, #90 TAB 0 Refills Pt takes this @ 0600, 1000, 1400, 1800 Docusate Sodium (Colace) 100 Mg Capsule PO BID Entacapone (Entacapone) 200 Mg Tab 200 MG PO QID for Parkinson Disease Mgmt, #120 TAB 0 Refills administered concomitantly with each levodopa/carbidopa dose Hydrochlorothiazide (Hydrochlorothiazide) 25 Mg Tab 25 MG PO EVERY OTHER DAY, #30 TAB 0 Refills Metoprolol Tartrate (Metoprolol Tartrate) 100 Mg Tab 100 MG PO BID, #60 TAB 0 Refills Omeprazole (Omeprazole) 20 Mg Tab 20 MG PO DAILY, #30 TAB 0 Refills Warfarin (Warfarin) 5 Mg Tab 5 MG PO FRIDAY for Blood Clot Prevention, #30 TAB 0 Refills Warfarin (Coumadin) 2.5 Mg Tab 2.5 MG PO [id number] for Prevent Blood Clot, #30 TAB 0 Refills Discontinued Medications: Lisinopril (Lisinopril) 5 Mg Tab 5 MG PO DAILY for Blood Pressure Management, #30 TAB 0 Refills Simone Gomez MD Mar 26, 2017 09:23
--- NOTE | 2017-03-26 09:24 | HHI.DCPOC ---
Discharge Care Plan Diagnosis: (1) Cellulitis of left foot (2) Foot abscess, left (3) Leg edema (4) Atrial fibrillation (5) CAD (coronary artery disease) (6) Parkinson disease Goals to Promote Your Health * To prevent worsening of your condition and complications * To maintain your health at the optimal level Directions to Meet Your Goals Take your medications as prescribed Follow your dietary instruction Follow activity as directed Keep your appointments as scheduled Take your immunizations and boosters as scheduled If your symptoms worsen call your PCP, if no PCP go to Urgent Care Center or Emergency Room Smoking is Dangerous to Your Health. Avoid second hand smoke Call the 24-hour hour crisis hotline for domestic abuse at Simone Gomez MD Mar 26, 2017 09:24
--- NOTE | 2017-03-26 09:24 | HHI.DCPOC ---
Discharge Care Plan Diagnosis: (1) Cellulitis of left foot (2) Foot abscess, left (3) Leg edema (4) Atrial fibrillation (5) CAD (coronary artery disease) (6) Parkinson disease Goals to Promote Your Health * To prevent worsening of your condition and complications * To maintain your health at the optimal level Directions to Meet Your Goals Take your medications as prescribed Follow your dietary instruction Follow activity as directed Keep your appointments as scheduled Take your immunizations and boosters as scheduled If your symptoms worsen call your PCP, if no PCP go to Urgent Care Center or Emergency Room Smoking is Dangerous to Your Health. Avoid second hand smoke Call the 24-hour hour crisis hotline for domestic abuse at Simone Gomez MD Mar 26, 2017 09:24
--- NOTE | 2017-03-26 09:24 | HHI.DCPOC ---
Discharge Care Plan Diagnosis: (1) Cellulitis of left foot (2) Foot abscess, left (3) Leg edema (4) Atrial fibrillation (5) CAD (coronary artery disease) (6) Parkinson disease Goals to Promote Your Health * To prevent worsening of your condition and complications * To maintain your health at the optimal level Directions to Meet Your Goals Take your medications as prescribed Follow your dietary instruction Follow activity as directed Keep your appointments as scheduled Take your immunizations and boosters as scheduled If your symptoms worsen call your PCP, if no PCP go to Urgent Care Center or Emergency Room Smoking is Dangerous to Your Health. Avoid second hand smoke Call the 24-hour hour crisis hotline for domestic abuse at Simone Gomez MD Mar 26, 2017 09:24
== END 2017-03-26 12:14 | DRG 580 ==
LOC: NEPC 13:41 → NEDA 16:37 → N04B 17:40
PROVIDERS: ADMIT Hospitalist; ATTEND Hospitalist
PROC: 0J9R0ZX Drainage of Left Foot Subcutaneous Tissue and Fascia, Open Approach, Diagnostic (ICD-10-PCS; 2017-03-20)
PROC: 0J9R0ZZ Drainage of Left Foot Subcutaneous Tissue and Fascia, Open Approach (ICD-10-PCS; principal; 2017-03-23 08:10)
DX: L03.116 Cellulitis of left lower limb (principal); L02.612 Cutaneous abscess of left foot; I48.2 Chronic atrial fibrillation; G20 Parkinson's disease; E87.1 Hypo-osmolality and hyponatremia; Z79.01 Long term (current) use of anticoagulants; I10 Essential (primary) hypertension; E78.5 Hyperlipidemia, unspecified; R60.0 Localized edema; I25.10 Atherosclerotic heart disease of native coronary artery without angina pectoris; Z95.5 Presence of coronary angioplasty implant and graft; Z72.89 Other problems related to lifestyle; B95.62 Methicillin resistant Staphylococcus aureus infection as the cause of diseases classified elsewhere; S90.32XA Contusion of left foot, initial encounter; W01.0XXA Fall on same level from slipping, tripping and stumbling without subsequent striking against object, initial encounter; R79.1 Abnormal coagulation profile; I87.2 Venous insufficiency (chronic) (peripheral); Z87.891 Personal history of nicotine dependence; Z85.828 Personal history of other malignant neoplasm of skin
CPT/HCPCS: 71010; 73630; 73701; 76937; 80048; 80053; 80061; 80202; 81001; 82565; 83036; 83605; 83735; 84443; 85007; 85025; 85027; 85610; 85730; 86403; 87015; 87040; 87070; 87102; 87116; 87147; 87186; 87205; 87206; 90471; 90714; 93005; 93306; 94150; 96365; J1160; J1650; J1940; J2270; J2370; J3370; J3430; J7030; J7040; J7050; L3260; Q9967